=== PATIENT | male | born 1940 | race Caucasian/White ===

== ENCOUNTER 2020-04-07 07:23 | Emergency (ER) | payer MEDICARE, SELFPAY ==
--- NOTE | ~2020-04-07 | XR_ITS ---
EXAMINATION: XR foot LT min 3V DATE: 04/07/2020 08:04 INDICATION: Foreign body TECHNIQUE: Dorsoplantar, two oblique and lateral views of the left foot were obtained. COMPARISON: None. FINDINGS: Alignment is normal. No fracture. 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 1-2 mm radiopaque foreign body consistent with a small g lass fragment projecting over the plantar soft tissues between the base of the third and fourth toes. IMPRESSION: 1. 1-2 mm radiopaque foreign body in the plantar soft tissues between the base of the third and fourt h toes. No acute osseous abnormality. Reviewed, dictated and finalized at location A. IMPRESSION: 1. 1-2 mm radiopaque foreign body in the plantar soft tissues between the base of the third and fourth toes. No acute osseous abnormality.
[2020-04-07 07:38] VITALS: BP 133/71; PULSE 71; RESP 18; TEMP 36.6; O2SAT 99
--- NOTE | 2020-04-07 07:52 | ED.SKABFB ---
HPI - Skin/Abscess/Foreign Bdy General Chief complaint: Skin/Abscess/Foreign Body Stated complaint: stepped on glass/foot injury Time Seen by Provider: 04/07/20 07:27 Source: patient Mode of arrival: ambulatory Limitations: no limitations History of Present Illness HPI narrative: This patient is a 79 year old male who presents for evaluation of foreign body to his left foot. Patient states he stepped on a piece of glass early this morning . His attempted to removed the glass from bottom of his left foot prior to arrival but she states it is deep. Patient is having pain with walking on the foot. He is not a diabetic. He is unsure of his last tetanus shot. MD complaint: foreign body Related Data Home Medications Medication Instructions Recorded Confirmed aspirin 81 mg tablet,delayed 81 mg PO DAILY 11/10/19 04/07/20 release atorvastatin 80 mg tablet 80 mg PO DAILY 11/10/19 04/07/20 nitroglycerin 0.4 mg sublingual 0.4 mg SUBLINGUAL Q5M PRN 11/10/19 04/07/20 tablet lisinopril 20 mg PO BID 04/07/20 04/07/20 pantoprazole 40 mg PO DAILY 04/07/20 04/07/20 ticagrelor [Brilinta] 90 mg PO Q12H 04/07/20 04/07/20 Allergies Allergy/AdvReac Type Severity Reaction Status Date / Time No Known Allergies Allergy Unknown Verified 04/07/20 07:46 Review of Systems Review of Systems: All systems reviewed & are unremarkable except as noted in HPI and below PMFSH Past Medical History Medical History (Updated 04/07/20 @ 17:21 by Shalonda Perry MD) Hypertension Hypothyroid Myocardial infarction Surgical History Surgical History (Updated 04/07/20 @ 07:54 by Shalonda Perry MD) History of heart artery stent History of open reduction and internal fixation (ORIF) procedure Family History Family History (Updated 10/01/18 @ 08:57 by DOCTOR UNKNOWN) Mother Carcinoma of colon Family history of malignant neoplasm of trachea Social History Social History Smoking status: Never smoker Alcohol intake: current Gender identity (if verbalized by the patient): Male Exam Const: General: no acute distress and alert Orientation/consciousness: patient oriented x3 HENMT: Head: normocephalic and atraumatic Face and sinus: face symmetric Eyes: EOM: EOMs intact bilaterally Resp: Effort & Inspection: normal respiratory effort Neuro: General: patient oriented x3 and moves all extremities Extrem: General: no pedal edema Other: left plantar surface with puncture wound at base of 3-4 metatarasal Course Vital Signs Vital signs: Vital Signs Temperature 97.9 F 04/07/20 07:38 Pulse Rate 71 04/07/20 07:38 Respiratory Rate 18 04/07/20 07:38 Blood Pressure 133/71 04/07/20 07:38 Pulse Oximetry 99 04/07/20 07:38 Temperature 97.9 F 04/07/20 07:38 Pulse Rate 65 04/07/20 09:56 Respiratory Rate 16 04/07/20 09:56 Blood Pressure 157/76 H 04/07/20 09:56 Pulse Oximetry 100 04/07/20 09:56 Procedures Foreign Body Removal Foreign Body #1: Foreign Body Removal Date: 04/07/20 Foreign Body Removal Time: 09:41 Site: left and foot Description of foreign body: other (glass) Technique: removal with forceps Confirmed by:: direct visualization and radiograph Neurovascular: normal distal pulse and normal capillary fill Foreign Body Removal Narrative: local anesthetic with 1 ml 1% lidocaine after prepping area with betadine MDM - Skin/Abscess/Foreign Bdy Imaging Data Radiologist's impression: ITS Impressions Foot X-Ray 04/07/20 08:10 IMPRESSION: 1. 1-2 mm radiopaque foreign body in the plantar soft tissues between the base of the third and fourth toes. No acute osseous abnormality. Discharge Plan Discharge Clinical Impression: Foreign body of foot, superficial Patient Disposition: Home, Self-Care Condition: Stable Instructions: Antibiotic Form, Soft Tissue Foreign Body (ED), Puncture Wound (ED) A
[2020-04-07] MEDS: TETANUS,DIPHTHERIA,AC PERTUSSIS ADULT (0.5 ML) BOOSTRIX IM (08:07)
[2020-04-07 09:56] VITALS: BP 157/76; PULSE 65; RESP 16; O2SAT 100
== END 2020-04-07 09:52 | disposition home or self-care (01) ==
PROVIDERS: Emergency Provider General Practice; PCP Family Medicine
DX: S91.342A Puncture wound with foreign body, left foot, initial encounter (principal); I10 Essential (primary) hypertension; E03.9 Hypothyroidism, unspecified; I25.2 Old myocardial infarction; Z95.5 Presence of coronary angioplasty implant and graft; Z23 Encounter for immunization; W25.XXXA Contact with sharp glass, initial encounter; W45.8XXA Other foreign body or object entering through skin, initial encounter
CPT/HCPCS: 73630; 90471; 90715; 99283; A9270

== ENCOUNTER 2020-04-11 00:46 | Outpatient (CLI) | payer MEDICARE, SELFPAY ==
[2020-04-11 18:12] LABS: SARS-CoV-2 RNA PCR Negative
== END 2020-04-11 00:47 | disposition home or self-care (01) ==
LOC: ANHCOVIDDT 00:46
PROVIDERS: PCP Family Medicine; Visit Provider Internal Medicine Gastroenterology
DX: Z01.818 Encounter for other preprocedural examination (principal); Z11.59 Encounter for screening for other viral diseases; Z86.010 Personal history of colon polyps
CPT/HCPCS: 87635; C9803; U0003

== ENCOUNTER 2020-04-13 01:56 | Day surgery (SDC) | payer MEDICARE, SELFPAY ==
[2020-04-07 16:23] VITALS: BMI 23.7
[2020-04-13 06:15] VITALS: BP 129/63; PULSE 76; RESP 16; TEMP 36.3; O2SAT 99
[2020-04-13] MEDS: LACTATED RINGERS 1,000 ML 150 ML IV CONT (06:31)
--- NOTE | 2020-04-13 07:18 | WPDANESEPPF ---
Anes - Initial Pre Proc Eval Procedure: Operation Date: 04/13/20 07:30 Proposed Procedures p Screening Colonoscopy - Carson Martin DO Date/Time: 04/13/20 07:18 Surgeon: Carson Martin DO Pre Op Diagnosis: Hx of Colon Polyps Patient Data Age: 79 Gender: M Height: 5 ft 10 in Weight: 72.8 kg Last Vital Signs Temp 97.3 F L 04/13/20 06:15 Pulse 76 04/13/20 06:15 Resp 16 04/13/20 06:15 BP 129/63 04/13/20 06:15 Pulse Ox 99 04/13/20 06:15 Allergies Allergy/AdvReac Type Severity Reaction Status Date / Time No Known Allergies Allergy Unknown Verified 04/07/20 07:46 Home Medications Medication Instructions Recorded Confirmed Type aspirin 81 mg tablet,delayed 81 mg PO DAILY 11/10/19 04/07/20 History release atorvastatin 80 mg tablet 80 mg PO DAILY 11/10/19 04/07/20 History nitroglycerin 0.4 mg sublingual 0.4 mg SUBLINGUAL Q5M PRN 11/10/19 04/07/20 History tablet indapamide 2.5 mg tablet 2.5 mg PO QAM #90 tablet 11/12/19 04/07/20 Rx levothyroxine 75 mcg tablet 75 mcg PO DAILY #90 tablet 11/15/19 04/07/20 Rx bupropion HCl 75 mg tablet 75 mg PO BID #180 tablet 02/03/20 04/07/20 Rx lisinopril 20 mg PO BID 04/07/20 04/07/20 History pantoprazole 40 mg PO DAILY 04/07/20 04/07/20 History ticagrelor [Brilinta] 90 mg PO Q12H 04/07/20 04/07/20 History Patient hx anesthesia problems: none Family hx anesthesia problems: none PMFSH Past Medical History Medical History (Updated 04/13/20 @ 07:19 by Carson Martin DO) Adenomatous colon polyp Anxiety and depression CAD (coronary artery disease) Stent x1 & x1 Colonoscopy causing post-procedural bleeding GERD (gastroesophageal reflux disease) HLD (hyperlipidemia) Hypertension Hypothyroid Lung cancer Myocardial infarction Surgical History Surgical History (Updated 04/07/20 @ 07:54 by Shalonda Perry MD) History of heart artery stent History of open reduction and internal fixation (ORIF) procedure Family History Family History (Updated 10/01/18 @ 08:57 by DOCTOR UNKNOWN) Mother Carcinoma of colon Family history of malignant neoplasm of trachea Social History Social History Smoking status: Never smoker Alcohol intake: current Gender identity (if verbalized by the patient): Male Anes - Eval Final PreProcedure Day of Procedure 04/13/20 07:18 Patient weight: normal Heart: regular rate and rhythm Lungs: clear to auscultation Airway: Mallampati scale class II Neurological: alert and oriented Last oral intake: >/= 8 hours ASA classification: III Emergent: no Anesthetic plan: proceed Anesthesia type and monitoring: general GIVS and standard monitoring Informed Consent: The patient's anesthetic plan and its attendant risks and benefits were discussed with the patient/family/POA. Questions were solicited and answers provided to the satisfaction of the patient/family/POA.
--- NOTE | 2020-04-13 07:19 | PM.IMHP ---
H&P: HPI History of Present Illness Chief complaint: Hx of Colon Polyps Narrative: Reason for visit colonoscopy. This very pleasant gentleman is here for colonoscopy at the request of the primary. The patient was examined. Impression: Screening and surveillance colonoscopy. The patient has history adenomatous colon polyps. GERD well controlled on medication. For past medical history. Recommendation: Colonoscopy. History: This very pleasant gentleman is here for screening and surveillance colonoscopy. He has a history adenomatous colon polyps. His GI review systems negative. Physical examination: General: very pleasant patient in no acute distress. HEENT: Head was normocephalic sclerae is clear mouth without masses neck was supple. Heart: Rate rhythm regular without S3 or S4. Lungs: CTA. Abdomen: Soft with no guarding or rigidity. Bowel sounds were active. Neurologic: Cranial nerves 2 through 12 intact. No focal defects. No clonus. Musculoskeletal system: Revealed no joint tenderness or swelling no muscle atrophy. Extremities: Reveal no significant edema. Skin: Warm and dry with normal turgor. Mental status: intact. Patient is alert and oriented. Review of Systems Review of Systems: All systems reviewed & are unremarkable except as noted in HPI and below PMFSH Past Medical History Medical History Adenomatous colon polyp Anxiety and depression CAD (coronary artery disease) Stent x1 & x1 Colonoscopy causing post-procedural bleeding GERD (gastroesophageal reflux disease) HLD (hyperlipidemia) Hypertension Hypothyroid Lung cancer Myocardial infarction Surgical History Surgical History History of heart artery stent History of open reduction and internal fixation (ORIF) procedure Family History Family History Mother Carcinoma of colon Family history of malignant neoplasm of trachea Social History Social History Smoking packs per day: 1 Smoking cigarettes per day: 20.0 Years smoked: 40 Smoking pack-years: 40.00 Smoking status: Never smoker Alcohol intake: current Gender identity (if verbalized by the patient): Male Meds Home Medications and Allergies Home Medications Medication Instructions Recorded Confirmed Type aspirin 81 mg tablet,delayed 81 mg PO DAILY 11/10/19 04/07/20 History release atorvastatin 80 mg tablet 80 mg PO DAILY 11/10/19 04/07/20 History nitroglycerin 0.4 mg sublingual 0.4 mg SUBLINGUAL Q5M PRN 11/10/19 04/07/20 History tablet indapamide 2.5 mg tablet 2.5 mg PO QAM #90 tablet 11/12/19 04/07/20 Rx levothyroxine 75 mcg tablet 75 mcg PO DAILY #90 tablet 11/15/19 04/07/20 Rx bupropion HCl 75 mg tablet 75 mg PO BID #180 tablet 02/03/20 04/07/20 Rx lisinopril 20 mg PO BID 04/07/20 04/07/20 History pantoprazole 40 mg PO DAILY 04/07/20 04/07/20 History ticagrelor [Brilinta] 90 mg PO Q12H 04/07/20 04/07/20 History Allergies Allergy/AdvReac Type Severity Reaction Status Date / Time No Known Allergies Allergy Unknown Verified 04/07/20 07:46 Vital Signs Vital Signs - 24 hr 04/13/20 06:15 Temperature 36.3 C L Pulse Rate 76 Respiratory Rate 16 Blood Pressure 129/63 Pulse Oximetry 99
[2020-04-13 08:00] VITALS: BP 93/35; PULSE 62; RESP 14; O2SAT 97
[2020-04-13 08:10] VITALS: BP 110/42; PULSE 63; RESP 17; O2SAT 97
[2020-04-13 08:20] VITALS: BP 123/67; PULSE 64; RESP 17; O2SAT 97
== END 2020-04-13 08:46 | disposition home or self-care (01) ==
PROVIDERS: PCP Family Medicine; Visit Provider Internal Medicine Gastroenterology
PROC: 0DJD8ZZ Inspection of Lower Intestinal Tract, Via Natural or Artificial Opening Endoscopic (ICD-10-PCS; CPT 45378; principal; 2020-04-13 07:30)
DX: Z12.11 Encounter for screening for malignant neoplasm of colon (principal); D12.3 Benign neoplasm of transverse colon; D12.2 Benign neoplasm of ascending colon; K63.5 Polyp of colon; K57.30 Diverticulosis of large intestine without perforation or abscess without bleeding; I10 Essential (primary) hypertension; E78.5 Hyperlipidemia, unspecified; I25.2 Old myocardial infarction; E03.9 Hypothyroidism, unspecified; I25.10 Atherosclerotic heart disease of native coronary artery without angina pectoris; F41.8 Other specified anxiety disorders; Z85.118 Personal history of other malignant neoplasm of bronchus and lung; Z79.82 Long term (current) use of aspirin; Z95.5 Presence of coronary angioplasty implant and graft; Z79.01 Long term (current) use of anticoagulants
CPT/HCPCS: 45380; 45385; 87635; 88305; C9803; J2704; J7120; U0003

== ENCOUNTER 2020-06-22 09:19 | Outpatient (CLI) | payer MEDICARE, SELFPAY ==
[2020-06-22 10:01] LABS: Basophils Percent Auto 0.5 % (0.2-1.2); Eosinophils Absolute Auto 0.1 K/mm3 (0-0.3); Eosinophils Percent Auto 1.4 % (0-4.4); Hematocrit 36.9 % (42.0-52.0); Immature Granulocyte Absolute 0.07 K/mm3 (0.00-0.031); Immature Granulocyte Percent A 1.1 % (0-0.5); Lymphocytes Absolute Auto 0.72 K/mm3 (0.9-3.2); Mean Corpuscular HGB Conc 32.5 g/dl (32-36); Mean Corpuscular Hemoglobin 32.9 pg (26-34); Mean Corpuscular Volume 101.1 fl (80-100); Mean Platelet Volume 10.7 fl (7.4-10.4); Monocytes Absolute Auto 0.5 K/mm3 (0.1-0.6); Neutrophils Absolute Auto 5.2 K/mm3 (1.3-6.7); Platelet Count Result 178 k/mm3 (150-375); Red Blood Count 3.65 M/mm3 (4.6-6.20); Red Cell Distribution Width 13.4 % (11.5-14.5); Reticulocyte Hemoglobin Conten 38.7 pg (28.2-35.7); Reticulocyte Percent 2.28 % (0.7-4.3); Reticulocytes Absolute 0.08 B/L (32.2-175.7); White Blood Count 6.5 K/mm3 (4.5-10.0)
[2020-06-22 12:41] LABS: Iron 81 ug/dL (49-181)
[2020-06-22 12:45] LABS: Alanine Aminotransferase 25 U/L (4-50); Albumin Level 4.4 g/dL (3.5-5.1); Alkaline Phosphatase 77 U/L (38-126); Anion Gap 7 mmol/L (8-16); Aspartate Amino Transferase 30 U/L (17-59); Bilirubin,Total 0.4 mg/dL (0.2-1.3); Blood Urea Nitrogen 18 mg/dL (9-20); Calcium 9.7 mg/dL (8.4-10.2); Carbon Dioxide 28 mmol/L (22-30); Chloride 105 mmol/L (98-107); Estimated Glomerular Filt Rate > 60; Glucose 109 mg/dL (75-110); Lactate Dehydrogenase 417 U/L (313-618); Potassium 4.9 mmol/L (3.4-5.0); Sodium 140 mmol/L (137-145)
[2020-06-22 12:50] LABS: Percent Iron Saturation 29 % (20-50)
[2020-06-26 13:03] LABS: Methylmalonic Acid 171 nmol/L (87-318)
== END 2020-06-22 09:20 | disposition home or self-care (01) ==
PROVIDERS: PCP Family Medicine; Visit Provider Internal Medicine Hematology & Oncology
DX: D64.9 Anemia, unspecified (principal)
CPT/HCPCS: 36415; 80053; 82607; 82728; 82746; 83540; 83550; 83615; 83921; 84443; 85025; 85046

== ENCOUNTER 2020-06-27 07:27 | Outpatient (CLI) | payer MEDICARE, SELFPAY ==
--- NOTE | ~2020-06-27 | CT_ITS ---
EXAMINATION: CT abdomen pelvis w con INDICATION: Nausea and vomiting, history of lung cancer TECHNIQUE: Computed tomographic images of the abdomen and pelvis were obtained after the administrati on of 100 cc of Omnipaque 350 intravenous contrast. The dose-length product (DLP) was 430.69 mGy-cm. Automated exposure control and iterative reconstruction technique were employed. COMPARISON: None available FINDINGS: Minimal dependent atelectasis is present in the lung bases. The heart size is normal. Surgi cruz changes are noted in the right middle lobe. Fluid attenuation lesions of the liver, measuring up to 1.3 cm in the left hepatic lobe, are consistent with cysts. The spleen, pancreas, gallbladder, and adrenal glands are normal. The kidneys are unremarkable. There is calcified atherosclerosis of the a luisa and many of the other arteries. No pathologically enlarged abdominal or pelvic lymph nodes are i dentified. There is no free intraperitoneal gas or evidence of bowel obstruction. A moderate volume o f colonic stool is present. Colonic diverticulosis is present without evidence of diverticulitis. The appendix is normal. Mild lumbar spondylosis is noted. IMPRESSION: 1. No CT correlate for the patient's symptoms. 2. Moderate volume of colonic stool. Reviewed, dictated and finalized at location A.
== END 2020-06-27 07:28 | disposition home or self-care (01) ==
PROVIDERS: PCP Family Medicine; Visit Provider Internal Medicine Hematology & Oncology
DX: R11.2 Nausea with vomiting, unspecified (principal)
CPT/HCPCS: 74177; Q9967

== ENCOUNTER 2021-03-29 13:30 | Outpatient (RCR) | payer MEDICARE, SELFPAY ==
[2021-03-15 12:22] VITALS: PULSE 56
--- NOTE | 2021-03-29 15:01 | PCCPR ---
Ayaan discharged early per his request. Ayaan felt like he was doing the same thing at the gym that he is doing here and did not want to pay the copay.
== END 2021-03-30 14:07 | disposition home or self-care (01) ==
LOC: ANHCPREHAB 13:30
PROVIDERS: PCP Family Medicine; Visit Provider Internal Medicine Cardiovascular Disease
DX: Z95.5 Presence of coronary angioplasty implant and graft (principal)
CPT/HCPCS: 93798

== ENCOUNTER 2021-06-18 10:10 | Emergency (ER) | payer MEDICARE, SELFPAY ==
--- NOTE | ~2021-06-18 | XR_ITS ---
EXAMINATION: XR chest 2V DATE: 06/18/2021 11:29 INDICATION: Nausea and vomiting. Weakness. TECHNIQUE: Frontal and lateral views of the chest were obtained. COMPARISON: Chest 2 views 07/26/2019, CT abdomen and pelvis 06/27/2020 FINDINGS: There is no pneumonia, pleural effusion, or pneumothorax. There are staple lines in right l ower lung zone. There are surgical clips overlying right hilum. The heart size is normal. There are p rominent paracardial fat pads. There is chronic anterior wedging of multiple thoracic vertebral josephine s. IMPRESSION: 1. No acute cardiopulmonary disease. Reviewed, dictated and finalized at location A.
[2021-06-18 10:25] VITALS: BP 101/67; PULSE 81; RESP 18; TEMP 36.2; O2SAT 100
--- NOTE | 2021-06-18 11:13 | ECG_ITS ---
Measurements Intervals [place] Rate: 72 P: 2 [place]: 161 QRS: 42 QRSD: 89 T: 33 QT: 367 QTc: 402 Interpretive Statements SINUS RHYTHM NORMAL ECG Electronically Signed On 06-18-2021 14:55:13 CDT by Eleazar Anguiano D.O.
[2021-06-18 11:29] LABS: Basophils Absolute Auto 0.1 K/mm3 (0.0-0.1); Basophils Percent Auto 0.7 % (0.2-1.2); Eosinophils Absolute Auto 0.2 K/mm3 (0-0.3); Eosinophils Percent Auto 1.8 % (0-4.4); Hematocrit 43.3 % (42.0-52.0); Hemoglobin 14.2 g/dL (14.0-18.0); Immature Granulocyte Absolute 0.16 K/mm3 (0.00-0.031); Immature Granulocyte Percent A 1.8 % (0-0.5); Lymphocytes Absolute Auto 0.73 K/mm3 (0.9-3.2); Mean Corpuscular HGB Conc 32.8 g/dl (32-36); Mean Corpuscular Hemoglobin 32.6 pg (26-34); Mean Corpuscular Volume 99.5 fl (80-100); Mean Platelet Volume 10.2 fl (7.4-10.4); Monocytes Absolute Auto 0.7 K/mm3 (0.1-0.6); Monocytes Percent Auto 7.8 % (2.6-8.5); Neutrophils Absolute Auto 7.3 K/mm3 (1.3-6.7); Neutrophils Percent Auto 79.9 % (45.5-73.1); Platelet Count Result 235 k/mm3 (150-375); Red Blood Count 4.35 M/mm3 (4.6-6.20); Red Cell Distribution Width 12.7 % (11.5-14.5); White Blood Count 9.1 K/mm3 (4.5-10.0)
[2021-06-18 11:38] LABS: Anion Gap 12 mmol/L (8-16); Blood Urea Nitrogen 48 mg/dL (9-20); Calcium 9.9 mg/dL (8.4-10.2); Carbon Dioxide 23 mmol/L (22-30); Chloride 98 mmol/L (98-107); Estimated CRCL calculation 21 ml/min; Estimated Glomerular Filt Rate 23; Glucose 120 mg/dL (65-110); Potassium 5.1 mmol/L (3.4-5.0); Sodium 133 mmol/L (137-145)
[2021-06-18 13:52] VITALS: BP 147/78; PULSE 78; RESP 18; O2SAT 100
--- NOTE | 2021-06-18 14:05 | ED.GENADULT ---
HPI - General Adult General Chief complaint: Unspecified Stated complaint: vomited, weak Time Seen by Provider: 06/18/21 13:51 History of Present Illness HPI narrative: 80 yo male presents to the ED c/o near syncope. He has reportedly not been feeling well for the past 2 days. He had profuse watery diarrhea yesterday and this morning. This seems to have resolved. Today he had nausea and one episode of vomiting. He then became very weak and light headed. His reports that he has had low energy and MAGALLANES for a few weeks. Related Data Home Medications Medication Instructions Recorded Confirmed aspirin 81 mg tablet,delayed 81 mg PO DAILY 11/10/19 03/19/21 release nitroglycerin 0.4 mg sublingual 0.4 mg SUBLINGUAL Q5M PRN 11/10/19 03/19/21 tablet acyclovir 800 mg tablet 800 mg PO DAILY 02/05/21 03/19/21 lisinopril 40 mg tablet 40 mg PO BID tablet 02/05/21 03/19/21 atorvastatin 40 mg PO HS 03/15/21 03/19/21 metoprolol succinate 12.5 mg PO DAILY 03/15/21 03/19/21 prasugrel 10 mg PO DAILY 03/15/21 03/19/21 magnesium oxide 500 mg tablet 500 mg PO DAILY 03/19/21 03/19/21 mecobalamin (vitamin B12) 5,000 5,000 mcg PO DAILY 03/19/21 03/19/21 mcg lozenge pantoprazole 40 mg tablet,delayed 40 mg PO DAILY tablet 03/19/21 03/19/21 release Allergies Allergy/AdvReac Type Severity Reaction Status Date / Time No Known Allergies Allergy Unknown Verified 04/18/21 15:00 Review of Systems Review of Systems: All systems reviewed & are unremarkable except as noted in HPI and below Constitutional: Constitutional: Denies chills and Denies fever(s) Eyes: Eyes: Reports no additional eye complaints ENT: Reports system reviewed and no additional complaints, except as documented Cardiovascular: Cardiovascular: Denies chest pain Respiratory: Respiratory: Denies dyspnea Gastrointestinal: Gastrointestinal: Reports diarrhea, Reports nausea and Reports vomiting Genitourinary: Genitourinary: Reports no additional male genitourinary complaints Musculoskeletal: Musculoskeletal: Denies back pain Neurologic: Reports dizziness, Denies syncope and Reports headache(s) [facility] Past Medical History Medical History Adenomatous colon polyp Anxiety and depression CAD (coronary artery disease) Stent x1 & x1 CKD (chronic kidney disease) stage 3, GFR 30-59 ml/min Degenerative disc disease, lumbar Environmental allergies GERD (gastroesophageal reflux disease) Herpes simplex ophthalmicus History of lung cancer HLD (hyperlipidemia) Hypertension Hypothyroid Lung cancer 2015 Myocardial infarction 06/2019 Umbilical hernia Vitamin B12 deficiency Surgical History Surgical History 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 History of hand surgery 06/2019 - Right hand chondroma excision History of heart artery stent (~07/26/19) 1999, 06/2019 History of lobectomy of lung 2015 - RML History of lumbar laminectomy for spinal cord decompression 2011 History of right cataract surgery 2018 History of umbilical hernia repair 2007 Family History Family History Mother Family history of malignant neoplasm of trachea Carcinoma of colon Hypertension Hyperlipidemia Father Cancer Social History Social History Smoking packs per day: 1 Smoking cigarettes per day: 20.0 Years smoked: 30 Smoking pack-years: 30.00 Smoking status: Never smoker Tobacco type: cigarettes Alcohol intake: current Substance use: never Substance use type: does not use Additional living arrangements comments: Gender identity (if verbalized by the patient): Male Spiritual care concerns: No Exam Const: General: healthy appearing, no acute distress and alert Orientation/consciousness: patien
[2021-06-18] MEDS: SODIUM CHLORIDE 0.9% IV 1,000 ML 999 ML IV CONT ×2 (14:13→15:56)
[2021-06-18 15:10] LABS: Alanine Aminotransferase 24 U/L (4-50); Albumin Level 4.8 g/dL (3.5-5.1); Alkaline Phosphatase 102 U/L (38-126); Aspartate Amino Transferase 29 U/L (17-59); Bilirubin,Total 0.9 mg/dL (0.2-1.3); Lipase 434 U/L (23-300)
[2021-06-18 15:39] LABS: NT Pro B Type Natriuretic Pept 46 pg/mL (5-100); Troponin I < 0.012 ng/mL (0.000-0.034)
[2021-06-18 16:11] LABS: EDCOVIDSCREEN Negative (Negative)
== END 2021-06-18 20:17 | disposition home or self-care (01) ==
PROVIDERS: Family Medicine; Emergency Provider Emergency Medicine; PCP Family Medicine
DX: N17.9 Acute kidney failure, unspecified (principal); E86.0 Dehydration; Z20.822 Contact with and (suspected) exposure to COVID-19; I25.10 Atherosclerotic heart disease of native coronary artery without angina pectoris; Z95.5 Presence of coronary angioplasty implant and graft; I12.9 Hypertensive chronic kidney disease with stage 1 through stage 4 chronic kidney disease, or unspecified chronic kidney disease; N18.30 Chronic kidney disease, stage 3 unspecified; E78.5 Hyperlipidemia, unspecified; I25.2 Old myocardial infarction; E03.9 Hypothyroidism, unspecified; K21.9 Gastro-esophageal reflux disease without esophagitis; E53.8 Deficiency of other specified B group vitamins; Z85.118 Personal history of other malignant neoplasm of bronchus and lung; Z86.010 Personal history of colon polyps; Z94.7 Corneal transplant status; Z90.2 Acquired absence of lung [part of]; Z98.41 Cataract extraction status, right eye; F17.210 Nicotine dependence, cigarettes, uncomplicated
CPT/HCPCS: 36415; 71046; 80048; 80076; 83690; 83880; 84484; 85025; 87426; 93005; 96360; 96361; 99284; C9803; J7030

== ENCOUNTER 2022-03-18 13:43 | Emergency (ER) | payer MEDICARE, SELFPAY ==
[2022-03-18] VITALS (14 sets, daily range): BP systolic 127–190; BP diastolic 86–96; PULSE 66–78; RESP 10–17; TEMP 35.9–36.8; O2SAT 96–100
--- NOTE | ~2022-03-18 | XR_ITS ---
XR chest 1V portable 03/18/2022 14:29 Indication: Hypertension. Lung cancer. Previous MS. Procedure: AP portable chest Comparison: 06/18/2021 Findings: Heart size normal. There is surgical clips overlying mediastinum. Subtle left basilar infil trates may represent atelectasis or developing pneumonia. No pleural effusion or pneumothorax. No acu te osseous abnormality. There are surgical changes in the right lower thorax. Impression: 1: Subtle left basilar infiltrates may represent atelectasis or developing pneumonia. Reviewed, dictated and finalized at location A. Impression: 1: Subtle left basilar infiltrates may represent atelectasis or developing pneu monia.
--- NOTE | 2022-03-18 13:57 | ED.GENADULT ---
HPI - General Adult General Chief complaint: Recheck/Abnormal Lab/Rx Stated complaint: Elevated Blood Pressure Time Seen by Provider: 03/18/22 13:56 Source: patient and family Mode of arrival: ambulatory Limitations: no limitations History of Present Illness HPI narrative: 81 years old white male who presented to the ED with elevated blood pressure. History of hypertension, on lisinopril and Lopressor. Patient was not able to sleep last night because too much stress lately. Got up this morning not feeling well because of lack of sleep, decided to take his blood pressure and was 190/95, took his regular blood pressure medication, half an hour later checked his blood pressure again and again half an hour later, last number was 220/120. Patient took extra dose of lisinopril and Lopressor, came to the emergency room with blood pressure 136/89. Patient is asymptomatic, he denies any chest pain, shortness of breath, fever, chills, back pain, headache. After talking to the patient and explaining what is going on. Blood pressure went up 190/86. Patient's at the bedside which is very anxious and restless and reflecting her anxiety on him. Related Data Home Medications Medication Instructions Recorded Confirmed aspirin 81 mg tablet,delayed 81 mg PO DAILY 11/10/19 09/19/21 release nitroglycerin 0.4 mg sublingual 0.4 mg SUBLINGUAL Q5M PRN 11/10/19 09/19/21 tablet acyclovir 800 mg tablet 800 mg PO DAILY 02/05/21 09/19/21 lisinopril 40 mg tablet 40 mg PO BID tablet 02/05/21 09/19/21 atorvastatin 40 mg PO HS 03/15/21 09/19/21 metoprolol succinate 12.5 mg PO DAILY 03/15/21 09/19/21 prasugrel 10 mg PO DAILY 03/15/21 09/19/21 magnesium oxide 500 mg tablet 500 mg PO DAILY 03/19/21 09/19/21 mecobalamin (vitamin B12) 5,000 5,000 mcg PO DAILY 03/19/21 09/19/21 mcg lozenge Allergies Allergy/AdvReac Type Severity Reaction Status Date / Time No Known Allergies Allergy Unknown Verified 03/18/22 13:51 Review of Systems Review of Systems: All systems reviewed & are unremarkable except as noted in HPI and below PMFSH Past Medical History Medical History Adenomatous colon polyp Anxiety and depression CAD (coronary artery disease) Stent x1 & x1 CKD (chronic kidney disease) stage 3, GFR 30-59 ml/min Degenerative disc disease, lumbar Environmental allergies GERD (gastroesophageal reflux disease) Herpes simplex ophthalmicus History of lung cancer HLD (hyperlipidemia) Hypertension Hypothyroid Lung cancer 2015 Myocardial infarction 06/2019 Umbilical hernia Vitamin B12 deficiency Surgical History Surgical History 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 History of hand surgery 06/2019 - Right hand chondroma excision History of heart artery stent (~07/26/19) 1999, 06/2019 History of lobectomy of lung 2014 - RML History of lumbar laminectomy for spinal cord decompression 2011 History of right cataract surgery 2018 History of umbilical hernia repair 2007 Family History Family History Mother Family history of malignant neoplasm of trachea Carcinoma of colon Hypertension Hyperlipidemia Father Cancer Social History Social History Smoking packs per day: 1 Smoking cigarettes per day: 20.0 Years smoked: 30 Smoking pack-years: 30.00 Smoking status: Former smoker Tobacco type: cigarettes Alcohol intake: current Substance use: never Substance use type: does not use Additional living arrangements comments: Gender identity (if verbalized by the patient): Male Sexual Orientation (if Verbalized by the Patient): Straight or Heterosexual Spiritual care concerns: No Exam Narrative: General appearance: Well-developed, well-nourished, looks anxious. Skin: Norm
--- NOTE | 2022-03-18 14:13 | ECG_ITS ---
Measurements Intervals [place] Rate: 70 P: -5 [place]: 174 QRS: 21 QRSD: 89 T: 8 QT: 386 QTc: 418 Interpretive Statements SINUS RHYTHM ATRIAL PREMATURE COMPLEX CONSIDER INFERIOR INFARCT, AGE INDETERMINATE ABNORMAL ECG Electronically Signed On 03-18-2022 14:33:14 CDT by Eleazar Anguiano D.O.
[2022-03-18] MEDS: LORazepam (*CRX) 0.5 MG TABLET 1 MG PO (14:19)
[2022-03-18 15:13] LABS: Basophils Percent Auto 0.6 % (0.2-1.2); Eosinophils Percent Auto 0.8 % (0-4.4); Hematocrit 36.5 % (42.0-52.0); Hemoglobin 11.9 g/dL (14.0-18.0); Immature Granulocyte Absolute 0.03 K/mm3 (0.00-0.031); Immature Granulocyte Percent A 0.6 % (0-0.5); Lymphocytes Absolute Auto 0.74 K/mm3 (0.9-3.2); Lymphocytes Percent Auto 14.8 % (18.3-44.2); Mean Corpuscular HGB Conc 32.6 g/dl (32-36); Mean Corpuscular Volume 101.1 fl (80-100); Mean Platelet Volume 10.4 fl (7.4-10.4); Monocytes Absolute Auto 0.5 K/mm3 (0.1-0.6); Monocytes Percent Auto 9.2 % (2.6-8.5); Neutrophils Absolute Auto 3.7 K/mm3 (1.3-6.7); Platelet Count Result 205 k/mm3 (150-375); Red Blood Count 3.61 M/mm3 (4.6-6.20); Red Cell Distribution Width 13.5 % (11.5-14.5)
[2022-03-18 15:23] LABS: Alanine Aminotransferase 24 U/L (6-50); Albumin Level 4.4 g/dL (3.5-5.1); Alkaline Phosphatase 88 U/L (38-126); Anion Gap 9 mmol/L (8-16); Aspartate Amino Transferase 31 U/L (17-59); Bilirubin,Total 0.7 mg/dL (0.2-1.3); Blood Urea Nitrogen 25 mg/dL (9-20); Calcium 9.4 mg/dL (8.4-10.2); Carbon Dioxide 21 mmol/L (22-30); Chloride 107 mmol/L (98-107); Estimated CRCL calculation 44 ml/min; Estimated Glomerular Filt Rate 58; Glucose 106 mg/dL (65-110); Potassium 4.6 mmol/L (3.4-5.0); Sodium 137 mmol/L (137-145)
[2022-03-18 15:35] LABS: Troponin I < 0.012 ng/mL (0.000-0.034)
== END 2022-03-18 15:39 | disposition home or self-care (01) ==
PROVIDERS: Emergency Provider Emergency Medicine; PCP Family Medicine
DX: F41.9 Anxiety disorder, unspecified (principal); F32.A Depression, unspecified; I25.10 Atherosclerotic heart disease of native coronary artery without angina pectoris; I12.9 Hypertensive chronic kidney disease with stage 1 through stage 4 chronic kidney disease, or unspecified chronic kidney disease; N18.30 Chronic kidney disease, stage 3 unspecified; M51.36 Other intervertebral disc degeneration, lumbar region; E78.5 Hyperlipidemia, unspecified; E03.9 Hypothyroidism, unspecified; I25.2 Old myocardial infarction; E55.9 Vitamin D deficiency, unspecified; Z95.5 Presence of coronary angioplasty implant and graft; Z94.7 Corneal transplant status; Z90.2 Acquired absence of lung [part of]; Z98.41 Cataract extraction status, right eye; Z87.891 Personal history of nicotine dependence; R91.8 Other nonspecific abnormal finding of lung field; I49.1 Atrial premature depolarization; R94.31 Abnormal electrocardiogram [ECG] [EKG]
CPT/HCPCS: 36415; 71045; 80053; 84484; 85025; 93005; 99284; A9270

== ENCOUNTER 2022-04-18 12:18 | Outpatient (CLI) | payer MEDICARE, SELFPAY ==
--- NOTE | ~2022-04-18 | CT_ITS ---
EXAMINATION: CT abdomen pelvis wo con DATE: 04/18/2022 12:42 INDICATION: Unintentional weight loss, history of lung cancer TECHNIQUE: Computed tomography (CT) of the abdomen and pelvis was performed without intravenous contr ast. The dose-length product (DLP) was 379.65 mGy-cm. Automated exposure control and iterative recons truction technique were employed. COMPARISON: 06/27/2020 FINDINGS: Minimal dependent atelectasis is present in the lung bases. The heart size is normal. There are changes of partial pneumonectomy on the right. Cysts of the liver measure up to 7 mm in the left hepatic lobe. The spleen, pancreas, gallbladder, and adrenal glands are normal. The kidneys are unre markable. There is calcified atherosclerosis of the aorta and many of the other arteries. No patholog ically enlarged abdominal or pelvic lymph nodes are identified. The appendix is normal. There is mode rate lumbar spondylosis. There is no free intraperitoneal gas or evidence of bowel obstruction. IMPRESSION: 1. No CT correlate for the patient's symptoms. Reviewed, dictated and finalized at location F.
== END 2022-04-18 12:19 | disposition home or self-care (01) ==
PROVIDERS: PCP Nurse Practitioner; Visit Provider Nurse Practitioner
DX: R63.4 Abnormal weight loss (principal); R11.0 Nausea; Z85.118 Personal history of other malignant neoplasm of bronchus and lung
CPT/HCPCS: 74176

== ENCOUNTER 2022-04-25 01:41 | Day surgery (SDC) | payer MEDICARE, SELFPAY ==
[2022-04-18 13:23] VITALS: BMI 23.7
--- NOTE | 2022-04-22 16:36 | PC.NURSE ---
PT CALLED TO DISCUSS STOPPING EFFIENT, PT STATES HE RAN OUT ABOUT 5 DAYS AGO, STATES HE WAS WANTING TO GET OFF IT ANYWAY. I EXPLAINED TO PATIENT THAT IT IS NOT SOMETHING HE SHOULD STOP OR RUN OUT OF WITHOUT DISCUSSING WITH DR. ASHBY, I EXPLAINED TO PT THAT DR. ASHBY GAVE OKAY TO HOLD ONLY FOR 5 DAYS. ENCOURAGED PT TO CALL DR. ASHBY AND DISCUSS, HE STATES HE WILL CALL. I CALLED DR. DEMPSEY OFFICE AND THEY ARE CLOSED FOR TODAY, I WILL CALL 04/23/2022 TO LET THE RN KNOW.
[2022-04-25 11:58] VITALS: BP 132/69; PULSE 77; RESP 18; TEMP 36.2; O2SAT 99
--- NOTE | 2022-04-25 12:07 | WPDHPUPDATE1 ---
History and Physical Update Update Date/Time: 04/25/22 12:07 History and Physical has been reviewed, including an updated exam of the patient. There are NO changes in the patient's condition. Risks, benefits, and alternatives have been discussed and questions answered. Patient agrees to proceed with procedure.
--- NOTE | 2022-04-25 12:13 | WPDANESEPPF ---
Anes - Initial Pre Proc Eval Procedure: Operation Date: 04/25/22 13:00 Proposed Procedures p Esophagogastroduodenoscopy - Carson Ewing MD Date/Time: 04/25/22 12:13 Surgeon: Carson Ewing MD Pre Op Diagnosis: weight loss, nausea Patient Data Age: 81 Gender: M Height: 1.78 m Weight: 74.5 kg Last Vital Signs Temp 36.2 C L 04/25/22 11:58 Pulse 77 04/25/22 11:58 Resp 18 04/25/22 11:58 BP 132/69 04/25/22 11:58 Pulse Ox 99 04/25/22 11:58 O2 Del Method Room Air 04/25/22 11:58 Allergies Allergy/AdvReac Type Severity Reaction Status Date / Time No Known Allergies Allergy Unknown Verified 04/25/22 11:57 Home Medications Medication Instructions Recorded Confirmed Type aspirin 81 mg tablet,delayed 81 mg PO DAILY 11/10/19 04/25/22 History release (Aspir-) nitroglycerin 0.4 mg sublingual 0.4 mg sublingual Q5M PRN Chest 11/10/19 04/25/22 History tablet Pain acyclovir 800 mg tablet 800 mg PO DAILY 02/05/21 04/25/22 History atorvastatin 40 mg tablet 40 mg PO HS 03/15/21 04/25/22 History metoprolol succinate 25 mg 12.5 mg PO DAILY 03/15/21 04/25/22 History tablet,extended release 24 hr prasugrel 10 mg tablet 10 mg PO DAILY 03/15/21 04/25/22 History magnesium oxide 500 mg tablet 500 mg PO DAILY 03/19/21 04/25/22 History indapamide 2.5 mg tablet 2.5 mg PO QAM #90 tabs 10/31/21 04/25/22 Rx bupropion HCl 75 mg tablet 75 mg PO BID #180 tabs 01/28/22 04/25/22 Rx pantoprazole 40 mg tablet,delayed 40 mg PO DAILY #90 tabs 03/26/22 04/25/22 Rx release mecobalamin (vitamin B12) 5,000 1,000 mcg PO DAILY 04/03/22 04/25/22 History mcg lozenge lisinopril 20 mg tablet 1 tablet PO BID 04/18/22 04/25/22 History levothyroxine 88 mcg tablet 88 mcg PO QAM #90 tabs 04/19/22 04/25/22 Rx Patient hx anesthesia problems: none Family hx anesthesia problems: none Results Review: All pre-operative results and documents have been reviewed as part of the pre-operative evaluation. [facility] Past Medical History Medical History Abnormal weight loss Adenomatous colon polyp Anxiety and depression Atrial fibrillation CAD (coronary artery disease) Stent x1 & x1 CKD (chronic kidney disease) stage 3, GFR 30-59 ml/min Degenerative disc disease, lumbar Environmental allergies Epigastric pain Family hx of colon cancer GERD (gastroesophageal reflux disease) Herpes simplex ophthalmicus History of lung cancer HLD (hyperlipidemia) Hypertension Hypothyroid Lung cancer 2015 Myocardial infarction 06/2019 Nausea Umbilical hernia Vitamin B12 deficiency Surgical History Surgical History 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 History of hand surgery 06/2019 - Right hand chondroma excision History of heart artery stent (~07/26/19) 1999, 06/2019 History of lobectomy of lung 2015 - RML History of lumbar laminectomy for spinal cord decompression 2012 History of right cataract surgery 2018 History of umbilical hernia repair 2007 Family History Family History Mother Family history of malignant neoplasm of trachea Carcinoma of colon Hypertension Hyperlipidemia Father Cancer Social History Social History Smoking packs per day: 1 Smoking cigarettes per day: 20.0 Years smoked: 30 Smoking pack-years: 30.00 Smoking status: Former smoker Tobacco type: cigarettes Alcohol intake: current Drinks per week: 14 Alcohol use details: DRINKS Substance use: never Substance use type: does not use Living arrangements: with family Additional living arrangements comments: Gender identity (if verbalized by the patient): Male Sexual Orientation (if Verbalized by the Patient): Straight or Heterosexual Spiritual care concerns: No
[2022-04-25] MEDS: LACTATED RINGERS 1,000 ML 150 ML IV CONT (12:16)
[2022-04-25 12:44] VITALS: BP 101/72; PULSE 67; RESP 16; O2SAT 100
[2022-04-25 12:54] VITALS: BP 141/72; PULSE 69; RESP 15; O2SAT 100
== END 2022-04-25 13:14 | disposition home or self-care (01) ==
PROVIDERS: PCP Nurse Practitioner; Visit Provider Internal Medicine Gastroenterology
PROC: 0DJ08ZZ Inspection of Upper Intestinal Tract, Via Natural or Artificial Opening Endoscopic (ICD-10-PCS; CPT 43235; principal; 2022-04-25 13:00)
DX: R11.0 Nausea (principal); K31.84 Gastroparesis; I25.10 Atherosclerotic heart disease of native coronary artery without angina pectoris; I25.2 Old myocardial infarction; I12.9 Hypertensive chronic kidney disease with stage 1 through stage 4 chronic kidney disease, or unspecified chronic kidney disease; F41.8 Other specified anxiety disorders; N18.30 Chronic kidney disease, stage 3 unspecified; R10.13 Epigastric pain; Z80.0 Family history of malignant neoplasm of digestive organs; K21.9 Gastro-esophageal reflux disease without esophagitis; E78.5 Hyperlipidemia, unspecified; E03.9 Hypothyroidism, unspecified; E53.8 Deficiency of other specified B group vitamins; K42.9 Umbilical hernia without obstruction or gangrene; Z87.891 Personal history of nicotine dependence; Z79.82 Long term (current) use of aspirin; R63.4 Abnormal weight loss; Z85.118 Personal history of other malignant neoplasm of bronchus and lung
CPT/HCPCS: 43235; J7120

== ENCOUNTER 2022-05-14 08:02 | Outpatient (CLI) | payer MEDICARE, SELFPAY ==
--- NOTE | ~2022-05-14 | NM_ITS ---
EXAM: NM gastric emptying study DATE: 05/14/2022 12:49 INDICATION: Nausea. TECHNIQUE: A gastric emptying study was performed using the methodology of Jasper CASTANON, et al. J Nucl Med 2007; 48:568-572. The patient was given a meal consisting of 2 scrambled eggs labeled with 0.935 mCi Tc-99m sulfur colloid, 2 slices of toast, two packages of jam, and approximately 120 mL of water . Simultaneous anterior and posterior 1-min images of the abdomen were obtained with the patient supi ne at multiple time points over a total period of 4 hours. The geometric mean of anterior and posteri or views was determined, and the percentage retention was calculated for each time point. COMPARISON: Abdomen and pelvis 04/18/2022 FINDINGS: Gastric retention of the radiotracer-labeled meal was 84%, 62%, and 15% at the 1-hour, 2-h our, and 4-hour time points, respectively. With this technique, apparent rapid gastric emptying is norris ggested by <30% gastric retention at 1 hour. Delayed gastric emptying is defined by gastric retention of >90% at 1 hour, >60% retention at 2 hours, or >10% retention at 4 hours. IMPRESSION: 1. Delayed gastric emptying. Reviewed, dictated and finalized at location A.
== END 2022-05-14 08:03 | disposition home or self-care (01) ==
PROVIDERS: PCP Nurse Practitioner; Visit Provider Internal Medicine Gastroenterology
DX: K31.89 Other diseases of stomach and duodenum (principal); R11.0 Nausea; K30 Functional dyspepsia
CPT/HCPCS: 78264; A9541

== ENCOUNTER → 2022-10-15 08:47 | Outpatient (CLI) | payer MEDICARE, SELFPAY ==
--- NOTE | ~2022-10-15 | US_ITS ---
US renal BI 10/15/2022 09:05 Procedure: Realtime transabdominal ultrasound of the kidneys and bladder. Indication: Hypertension Comparison: Ultrasound dated 02/16/2019 Findings: Renal echotexture is normal bilaterally without hydronephrosis, contour deforming mass or r enal calculus. The right kidney measures 9.5 cm and left kidney measures 10 cm. Bladder within gautam l limits. Impression: 1: Unremarkable renal ultrasound. No stones, masses or hydronephrosis. Reviewed, dictated and finalized at location A. [employer] Impression: 1: Unremarkable renal ultrasound. No stones, masses or hydronephrosis.
== END ==
PROVIDERS: PCP Internal Medicine Nephrology; Visit Provider Internal Medicine Nephrology
DX: I12.9 Hypertensive chronic kidney disease with stage 1 through stage 4 chronic kidney disease, or unspecified chronic kidney disease (principal); N18.32 Chronic kidney disease, stage 3b; Z20.5 Contact with and (suspected) exposure to viral hepatitis
CPT/HCPCS: 76775

== ENCOUNTER → 2023-04-02 13:01 | Outpatient (CLI) | payer MEDICARE, SELFPAY ==
--- NOTE | ~2023-04-02 | XR_ITS ---
XR lumbar spine 2-3V DATE: 04/02/2023 13:12 INDICATION: Right sciatica. No injury. TECHNIQUE: AP, lateral, coned lateral lumbosacral views COMPARISON: 07/2011 MRI lumbar spine 07/10/2011 lumbar spine FINDINGS: There is diffuse osteopenia. Mild thoracolumbar levoscoliosis There is degenerative change at the apophyseal joints particularly in the lower lumbar and lumbosacra l area with associated minimal grade 1 anterolisthesis at L4-5. No fracture or bone destruction is evident. The included lower thoracic and lumbar pedicles are intac t. There is mild to moderate degenerative disc disease throughout the lumbosacral area. The sacroiliac joints are intact. There is extensive calcification of the abdominal aorta and common and external iliac arteries, without evidence of aneurysm. IMPRESSION: Osteopenia Mild thoracolumbar levoscoliosis Mild to moderate degenerative disc disease throughout the spine Grade 1 anterolisthesis at L4-5 due to degenerative change at the apophyseal joints Reviewed, dictated and finalized at location [] IMPRESSION: Osteopenia Mild thoracolumbar levoscoliosis Mild to moderate degenerative disc disease throughout the spine Grade 1 anterolisthesis at L4-5 due to degenerative change at the apophyseal tray ints
== END ==
PROVIDERS: PCP Family Medicine; Visit Provider Family Medicine
DX: M54.41 Lumbago with sciatica, right side (principal); M85.88 Other specified disorders of bone density and structure, other site; M51.36 Other intervertebral disc degeneration, lumbar region
CPT/HCPCS: 72100

== ENCOUNTER 2023-04-14 09:58 | Outpatient (CLI) | payer MEDICARE, SELFPAY ==
[2023-04-14 15:46] LABS: Creatinine Urine 77.8 mg/dL
[2023-04-14 16:13] LABS: Albumin Level 4.4 g/dL (3.5-5.1); Anion Gap 4 mmol/L (8-16); Blood Urea Nitrogen 51 mg/dL (9-20); Carbon Dioxide 32 mmol/L (22-30); Chloride 101 mmol/L (98-107); Estimated Glomerular Filt Rate 30; Glucose 108 mg/dL (65-110); Phosphorus 4.2 mg/dL (2.5-4.5); Potassium 5.7 mmol/L (3.4-5.0); Sodium 137 mmol/L (137-145)
[2023-04-14 16:28] LABS: Hepatitis B Surface Anti Res Positive
[2023-04-14 16:45] LABS: Total Protein Urine Random < 5 mg/dL
[2023-04-14 16:46] LABS: Ur Ttl Prot Creatinine Ratio < 0.06 mg/mg (0-0.20)
== END 2023-04-14 09:59 | disposition home or self-care (01) ==
LOC: ANHLAB 10:00
PROVIDERS: PCP Family Medicine; Visit Provider Internal Medicine Nephrology
DX: I12.9 Hypertensive chronic kidney disease with stage 1 through stage 4 chronic kidney disease, or unspecified chronic kidney disease (principal); N18.32 Chronic kidney disease, stage 3b
CPT/HCPCS: 36415; 80069; 82088; 82570; 84156; 84244; 84443; 86706

== ENCOUNTER 2023-04-28 09:33 | Outpatient (CLI) | payer MEDICARE, SELFPAY ==
[2023-04-28 10:59] LABS: Albumin Level 4.1 g/dL (3.5-5.1); Anion Gap 5 mmol/L (8-16); Blood Urea Nitrogen 40 mg/dL (9-20); Calcium 9.2 mg/dL (8.4-10.2); Carbon Dioxide 28 mmol/L (22-30); Chloride 103 mmol/L (98-107); Estimated Glomerular Filt Rate 34; Glucose 131 mg/dL (65-110); Phosphorus 3.8 mg/dL (2.5-4.5); Potassium 4.4 mmol/L (3.4-5.0); Sodium 136 mmol/L (137-145)
== END 2023-04-28 09:34 | disposition home or self-care (01) ==
LOC: ANHLAB 09:34
PROVIDERS: PCP Family Medicine; Visit Provider Internal Medicine Nephrology
DX: N18.32 Chronic kidney disease, stage 3b (principal)
CPT/HCPCS: 36415; 80069

== ENCOUNTER 2023-04-29 10:14 | Emergency (ER) | payer MEDICARE, SELFPAY ==
[2023-04-29] VITALS (7 sets, daily range): BP systolic 139–167; BP diastolic 62–77; PULSE 60–63; RESP 10–15; TEMP 36.6; O2SAT 97–100
--- NOTE | ~2023-04-29 | CT_ITS ---
EXAMINATION: CT lumbar spine wo con DATE: 04/29/2023 11:52 INDICATION: Low back pain TECHNIQUE: Computed tomography (CT) of the lumbar spine was performed without intravenous contrast. T he dose-length product (DLP) was 585.86 mGy-cm. Iterative reconstruction was used. COMPARISON: 06/27/2020 FINDINGS: Bone alignment is normal. There is no fracture. There is vacuum disc phenomena and moderate loss of disc space height at L4-5 and L5-S1. Small degenerative osteophytes project from the anterio r endplates of multiple vertebral bodies. There is severe facet joint osteoarthritis of the lower lum bar spine. There are multilevel posterior disc bulges. There is moderate neuroforaminal stenosis on t he right at L3-4 and L4-5. There is severe neuroforaminal stenosis on the right at L5-S1. Calcified a therosclerosis is noted. IMPRESSION: 1. Moderate lumbar spondylosis with interval worsening since the comparison examination but without a cute findings. Reviewed, dictated and finalized at location A. IMPRESSION: 1. Moderate lumbar spondylosis with interval worsening since the comparison exa mination but without acute findings.
[2023-04-29] MEDS: traMADol HCL (*CRX) 25 MG TABLET PO (12:08)
[2023-04-29] MEDS: ACETAMINOPHEN 500 MG TABLET 1000 MG PO (12:09)
--- NOTE | 2023-04-29 13:44 | ED.BACK ---
HPI - Back Pain/Injury General Chief Complaint: Back Pain/Injury Stated Complaint: Right back and leg pain Time Seen by Provider: 04/29/23 10:29 Source: patient and old records reviewed Mode of arrival: ambulatory Limitations: no limitations History of Present Illness HPI Narrative: Patient is a 89-year-old male who presents to the ED with report of right low back pain, radiating down his right lower extremity. Patient reports having issues with pain over the last 1 month. Per records, patient has history of chronic back pain dating back to 2011. He is currently seeing pain management and is supposed to be receiving an MRI soon. He is also supposed to see Dr. Negro with neurosurgery soon. Patient reports pain became worse last night into today. Pain worse with ambulation and bearing weight on right leg. He has been taking Tylenol and ibuprofen for the pain with minimal relief. He has previously been prescribed tramadol, but he has not tried taking this. He did not take anything for pain prior to arrival. He reports having numbness and tingling into his leg which is chronic for him. Denies any changes in this. Denies any bowel bladder incontinence. Denies fever. Related Data Home Medications Medication Instructions Recorded Confirmed nitroglycerin 0.4 mg sublingual 0.4 mg sublingual Q5M PRN Chest 11/10/19 04/14/23 tablet Pain atorvastatin 40 mg tablet 40 mg PO HS 03/15/21 04/14/23 magnesium oxide 500 mg tablet 500 mg PO DAILY 03/19/21 04/14/23 mecobalamin (vitamin B12) 5,000 1,000 mcg PO DAILY 04/03/22 04/14/23 mcg lozenge pantoprazole 40 mg tablet,delayed 40 mg PO DAILY 03/31/23 04/14/23 release aspirin 81 mg tablet,delayed 81 mg PO DAILY 04/11/23 04/14/23 release (Adult Low Dose Aspirin) amlodipine 5 mg tablet 5 mg PO DAILY 04/22/23 ferrous fumarate 89 mg (29 mg 89 mg PO DAILY 04/22/23 iron) tablet Allergies Allergy/AdvReac Type Severity Reaction Status Date / Time No Known Allergies Allergy Unknown Verified 04/29/23 10:20 Review of Systems Review of Systems: CONSTITUTIONAL: Denies fever, chills, or sweats. GASTROINTESTINAL: Denies abdominal pain, nausea, vomiting, or diarrhea. GENITOURINARY: Denies incontinence, dysuria or hematuria. MUSCULOSKELETAL: See HPI. NEUROLOGIC: See HPI. All systems reviewed & are unremarkable except as noted in HPI and below PMFSH Past Medical History Medical History Adenomatous colon polyp Anemia Anxiety and depression Atrial fibrillation CAD (coronary artery disease) Stent x1 & x1 CKD (chronic kidney disease) stage 3, GFR 30-59 ml/min Degenerative disc disease, lumbar Environmental allergies Epigastric pain Family hx of colon cancer GERD (gastroesophageal reflux disease) Herpes simplex ophthalmicus History of lung cancer HLD (hyperlipidemia) Hypertension Hypothyroid Lung cancer 2015 Myocardial infarction 06/2019 Nausea Umbilical hernia Vitamin B12 deficiency Surgical History Surgical History 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 History of hand surgery 06/2019 - Right hand chondroma excision History of heart artery stent (~07/26/19) 1999, 06/2019 History of lobectomy of lung 2015 - RML History of lumbar laminectomy for spinal cord decompression 2012 History of right cataract surgery 2018 History of umbilical hernia repair 2007 Family History Family History Mother Family history of malignant neoplasm of trachea Carcinoma of colon Hypertension Hyperlipidemia Father Cancer Social History Social History Smoking packs per day: 1 Smoking cigarettes per day: 20.0 Years smoked: 30 Smoking pack-years: 30.00 Smoking status: Former smoker Tobacco type: cigarettes Al
== END 2023-04-29 13:57 | disposition home or self-care (01) ==
PROVIDERS: Emergency Provider Physician Assistant; PCP Family Medicine
DX: M54.41 Lumbago with sciatica, right side (principal); M47.26 Other spondylosis with radiculopathy, lumbar region; I12.9 Hypertensive chronic kidney disease with stage 1 through stage 4 chronic kidney disease, or unspecified chronic kidney disease; N18.30 Chronic kidney disease, stage 3 unspecified; I25.2 Old myocardial infarction; I25.10 Atherosclerotic heart disease of native coronary artery without angina pectoris; E78.5 Hyperlipidemia, unspecified; E03.9 Hypothyroidism, unspecified; E53.8 Deficiency of other specified B group vitamins; K21.9 Gastro-esophageal reflux disease without esophagitis; Z95.5 Presence of coronary angioplasty implant and graft; Z94.7 Corneal transplant status; Z85.118 Personal history of other malignant neoplasm of bronchus and lung; Z87.891 Personal history of nicotine dependence; Z98.41 Cataract extraction status, right eye; Z90.2 Acquired absence of lung [part of]; Z79.82 Long term (current) use of aspirin
CPT/HCPCS: 72131; 99284; A9270

== ENCOUNTER → 2023-05-05 11:04 | Outpatient (CLI) | payer MEDICARE, SELFPAY ==
--- NOTE | ~2023-05-05 | MR_ITS ---
MRI of the lumbar spine Clinical History: Radiculopathy Technique: Axial T2-weighted images, and sagittal T1-weighted, T2-weighted, and T2 fat-sat images wer e acquired. COMPARISON: 07/30/2011 Findings: There is no fracture or subluxation of the lumbar spine. Vertebral bodies maintain normal h eight and alignment. There are reactive marrow signal changes about the L5-S1 disc space due to under lying degenerative disc disease. At L1-L2, there is minimal disc bulge. There is moderate facet arthropathy. No central canal stenosis or definite neural foraminal narrowing. At L2-L3, there is diffuse disc bulge with moderate facet arthropathy. There is moderate to severe ce ntral canal stenosis/thecal sac compression at this level. There is moderate right neural foraminal n arrowing and moderate to severe left neural foraminal narrowing. At L3-L4, there is diffuse disc bulge and mild facet arthropathy. No central canal stenosis. There is severe bilateral neural foraminal narrowing. At L4-L5, there is diffuse disc bulge and moderate to advanced facet arthropathy. There is left later al recess stenosis with severe left neural foraminal compromise. There is also severe right neural fo raminal compromise. At L5-S1, there is diffuse disc bulge with advanced facet arthropathy. No central canal stenosis. The re is moderate to severe left neural foraminal narrowing, and severe right neural foraminal narrowing . Paravertebral soft tissues are unremarkable. Impression: Advanced degenerative spondylosis, as detailed above. There is multilevel advanced neural foraminal n arrowing. There is moderate to severe multifactorial central canal stenosis/thecal sac compression at L2-L3. Reviewed, dictated and finalized at [facility]. Impression: Advanced degenerative spondylosis, as detailed above. There is multilevel advan ellyn neural foraminal narrowing. There is moderate to severe multifactorial cent ral canal stenosis/thecal sac compression at L2-L3.
== END ==
PROVIDERS: PCP Family Medicine; Visit Provider Anesthesiology Pain Medicine
DX: M47.27 Other spondylosis with radiculopathy, lumbosacral region (principal)
CPT/HCPCS: 72148

== ENCOUNTER 2023-05-19 12:30 | Outpatient (RCR) | payer MEDICARE, SELFPAY ==
--- NOTE | 2023-04-25 13:52 | OPREHPOC ---
Outpatient Therapy Plan of Care This is a Multidisciplinary Plan of Care that may contain components documented by all disciplines (PT, OT, and ST.) PT Problem 1 PT Problem #1 Knowledge Deficit PT Goal 1 Goal Pt to be IND with issued HEP Target Visit 8 PT Problem 2 PT Problem #2 Pain PT Goal 1 Goal Pt to report pain no greater than 5/10 in the last week Target Visit 8 PT Goal 2 Goal Pt to report 75% improvement in overall symptoms Target Visit 8 PT Problem 3 PT Problem #3 Impaired Strength PT Goal 1 Goal Pt to improve hip abduction strength to grossly 4/ 5 Target Visit 8 PT Goal 2 Goal Pt to be able to lift and carry 20lb from ground level. PT Problem 4 PT Problem #4 Impaired Sensation PT Goal 1 Goal Pt to decline radicular symptoms in the last week Target Visit 8
--- NOTE | 2023-04-25 13:52 | PTOPEVAL1 ---
Assessment and note entered by Prabhakar Rowe, PT, DPT Evaluation Information Assessment Status Evaluation Diagnosis low back pain Subjective Information Pt states he has had this pain before in 2019. He states the pain is running across his hip, down his thigh, down his calf, and into his foot. He states his back hurts at its worse first thing in the morning. Pt states he has to complete therapy in order to have surgery. Pt states bending forward in his chair decreases his pain. Reported Pain Level Pain Score 4: Self Report Assessment PT Clinical Summary Howard Kuo presents to therapy today for his initial evaluation with a diagnosis of low back pain with spondylosis. Today he demonstrates tenderness to palpation throughout his lumbar and sacral region as well as R hip region. He demonstrates core and hip weakness leading to faulty sitting and walking positions. Skilled therapy services are indicated to address the deficits noted above, to manage pain, and to return to PLOF. Plan of Care Interventions Electrical Stimulation,Gait Training,Hot Pack/Cold Pack,Manual Therapy,Neuro Re-education,Patient/ Caregiver Educati,Therapeutic Activities, Therapeutic Exercise PT Services Indicated Yes Treatment Frequency and 2x/wk for 4 wks Duration These treatments will address the objective and functional deficits as defined above. The patient will be advanced safely and appropriately in order for the patient to progress towards his/her prior level of function. Additional exercises will be introduced and as well as a comprehensive home exercise program upon discharge, if needed, ?to ensure carryover of functional gains achieved in the clinic. This treatment plan has been reviewed and agreement upon by the patient.
--- NOTE | 2023-05-26 12:32 | PCPTNOTE ---
Patient called & cancelled scheduled appointment this date. He plans to call back to reschedule.
--- NOTE | 2023-06-23 11:49 | PTOPDC ---
Assessment and note entered by Prabhakar Rowe, PT, DPT Evaluation Information Assessment Status Discharge - Pt Not Present Diagnosis low back pain Subjective Information Called and spoke with patient to follow up as he cancelled his last visit. He states he is doing well and does not need to continue therapy. He will be discharged at this time. Assessment PT Clinical Summary Pt completed 5 visits of therapy from 04/25/23 to . If he needs additional therapy at a later date, he will need a new order. Plan of Care PT Services Indicated No
== END 2023-06-23 13:04 | disposition home or self-care (01) ==
LOC: ANHGOSHPT 12:30
PROVIDERS: PCP Family Medicine; Visit Provider Anesthesiology Pain Medicine
DX: M54.9 Dorsalgia, unspecified (principal); M47.817 Spondylosis without myelopathy or radiculopathy, lumbosacral region; M54.17 Radiculopathy, lumbosacral region; M51.36 Other intervertebral disc degeneration, lumbar region
CPT/HCPCS: 97014; 97110; 97140; 97161; 97530; G0283

== ENCOUNTER 2023-05-20 07:24 | Day surgery (SDC) | payer MEDICARE, SELFPAY ==
[2023-05-19 08:38] VITALS: BMI 25.1
--- NOTE | ~2023-05-20 | XR_ITS ---
XR fluoroscopy no charge PROCEDURE: Right L4-5, L5-S1 transforaminal epidural steroid injection TECHNIQUE: Fluoroscopy used during Right L4-5, L5-S1 transforaminal epidural steroid injection perfo rmed by [Howard Quintana MD] on 05/20/2023. 24 seconds of fluoroscopy with 75 fluoroscopic images captured. FINDINGS: Correlate with procedure note. IMPRESSION: Fluoroscopy used during Right L4-5, L5-S1 transforaminal epidural steroid injection. Plea se refer to procedural report. Reviewed, dictated and finalized at location A. IMPRESSION: Fluoroscopy used during Right L4-5, L5-S1 transforaminal epidural s teroid injection. Please refer to procedural report.
--- NOTE | 2023-05-20 07:23 | WPDHPUPDATE1 ---
History and Physical Update Update Date/Time: 05/20/23 07:23 History and Physical has been reviewed, including an updated exam of the patient. There are NO changes in the patient's condition. Risks, benefits, and alternatives have been discussed and questions answered. Patient agrees to proceed with procedure.
[2023-05-20 07:57] VITALS: BP 159/69; PULSE 58; RESP 20; O2SAT 100
[2023-05-20 09:00] VITALS: BP 166/106; PULSE 61; RESP 18; O2SAT 100
[2023-05-20 09:10] VITALS: BP 180/91; PULSE 61; RESP 18; O2SAT 100
[2023-05-20 09:14] VITALS: BP 150/89; PULSE 59; RESP 20; O2SAT 100
--- NOTE | 2023-05-20 09:14 | W.PM.PROC2 ---
Procedure Note - Detailed Date of Procedure 05/20/23 Pre-op Diagnosis Lumbosacral radiculopathy Post-op Diagnosis Same Procedure Performed Right L4-5. L5-S1 transforaminal epidural steroid injection with fluoroscopy. Surgeon Howard Quintana MD Anesthesia Local Description of Procedure INFORMED CONSENT: Risks, benefits and alternatives to the procedure were discussed in detail with the patient who expressed explicit understanding and consent to proceed. Patient was informed verbally and in written form regarding the risks associated with the procedure including the low risk of serious infection, bleeding/bruising, allergic reaction, nerve or organ injury, paralysis, procedural site pain or discomfort, worsening pain and/or mobility, failure to treat and/or disfigurement. The patient expressed explicit understanding and consent to proceed. All materials required for the procedure were available prior to procedure start. Site and side was marked prior to procedure and confirmed in the presence of the patient. PROCEDURE IN DETAIL: The patient was brought to the procedural suite and placed in the prone position. Patient was made comfortable with use of pillows under the head/chest, hips and ankles. Skin overlying the injection site was prepared broadly with ChloraPrep applicator and draped in a sterile manner. Aseptic technique was employed throughout. The endplates of the vertebral body at the site of interest were aligned in the AP view. Ipsilateral oblique angulation was utilized to better visualize the neuroforamen of interest. Local anesthesia was established by infiltration with approximately 5 mL of 2% lidocaine via a 1-1/2 inch 27-gauge needle. A 22-gauge 3.5 inch Jennifer (pencil point) spinal needle was advanced until the needle approached the 6 o'clock position on the pedicle just superior to the exiting nerve root. on the right at L4-5. Lateral view was utilized to confirm appropriate position of the needle tip within the superior and posterior portion of the respective foramen. In an AP view, 1 mL of Omnipaque 300 contrast medium was injected after negative aspiration for CSF, blood or other bodily fluid, showing appropriate neurogram without evidence of intravascular or intrathecal spread of contrast. Digital subtraction imaging was used with an additional 1ml of the same contrast medium to confirm absence of intravascular contrast spread. A 1mL solution containing 5 mg of dexamethasone was injected after negative repeat aspiration. Appropriate spread of the injectate was confirmed with washout of previously injected contrast. No parasthesias were elicited. Needle was removed completely intact without difficulty. The same exact procedure was repeated for all remaining levels on the ipsilateral side, right L5-S1 neuroforamen, modified as necessary to accommodate for the new target location with identical findings and results and no evidence of complication. Images were saved and documented in the patient chart. Patient's skin was cleaned and sterile bandage applied. The patient tolerated the procedure well. The patient was transported to the recovery area in stable condition where they were observed for an appropriate amount of time prior to discharge, without evidence of complication. The patient was instructed to avoid excessive activity for the next 48 hours, including climbing and frequent use of stairs. Showers only for 48 hours. They were instructed not to drive or operate heavy machinery for 24 hours. They are to monitor for severe headaches, fevers, chills, night sweats, erythema/swelling at the site or any other signs of infection, bleeding/bruising, bowel or bladder changes as well as new pain, weakness or numbness in the upper or lower extremity. Should they notice these changes, they are instructed to call our office immediately or report directly to the nearest Emergency Department if no answer or if after posted office hours. COMPLICATIONS: None
[2023-05-20] MEDS: LIDOCAINE HCL 1% PF INJ 5 ML VIAL AFFCTD EYE (10:00)
[2023-05-20] MEDS: LIDOCAINE HCL 2% PF INJ 5 ML VIAL 1 ML INFILTRATE (10:24)
== END 2023-05-20 09:27 | disposition home or self-care (01) ==
LOC: ASC 07:34
PROVIDERS: PCP Family Medicine; Visit Provider Anesthesiology Pain Medicine
PROC: (CPT 64483; principal; 2023-05-20 08:30)
DX: M54.16 Radiculopathy, lumbar region (principal)
CPT/HCPCS: 64483; 99199

== ENCOUNTER 2023-07-11 09:37 | Outpatient (CLI) | payer MEDICARE, SELFPAY ==
--- NOTE | ~2023-07-11 | XR_ITS ---
EXAMINATION: XR chest 2V DATE: 07/11/2023 10:28 INDICATION: Lung cancer. Preop. TECHNIQUE: Frontal and lateral views of the chest were obtained. COMPARISON: Chest single view 03/18/2022 FINDINGS: There are surgical changes of right lung, likely a lobectomy. No pleural effusion or pneumo thorax. The heart size is normal. There are prominent paracardial fat pads. There is chronic anterior wedging of multiple vertebral bodies. IMPRESSION: 1. No acute cardiopulmonary disease. Reviewed, dictated and finalized at location A.
--- NOTE | 2023-07-11 09:58 | ECG_ITS ---
Measurements Intervals Bryant Rate: 57 P: 19 TN: 205 QRS: 1 QRSD: 85 T: 3 QT: 408 QTc: 400 Interpretive Statements SINUS BRADYCARDIA CONSIDER INFERIOR INFARCT, AGE INDETERMINATE ABNORMAL ECG COMPARED TO ECG 03/18/2022 14:23:37 SINUS BRADYCARDIA NOW PRESENT Electronically Signed On 07-11-2023 11:01:07 CDT by Eleazar Anguiano D.O.
[2023-07-11 10:34] LABS: Basophils Absolute Auto 0.1 K/mm3 (0.0-0.1); Eosinophils Absolute Auto 0.2 K/mm3 (0-0.3); Eosinophils Percent Auto 3.6 % (0-4.4); Hematocrit 36.9 % (42.0-52.0); Immature Granulocyte Absolute 0.08 K/mm3 (0.00-0.031); Immature Granulocyte Percent A 1.6 % (0-0.5); Lymphocytes Absolute Auto 0.97 K/mm3 (0.9-3.2); Lymphocytes Percent Auto 19.1 % (18.3-44.2); Mean Corpuscular HGB Conc 32.5 g/dl (32-36); Mean Corpuscular Hemoglobin 34.4 pg (26-34); Mean Corpuscular Volume 105.7 fl (80-100); Mean Platelet Volume 10.4 fl (7.4-10.4); Monocytes Absolute Auto 0.5 K/mm3 (0.1-0.6); Monocytes Percent Auto 9.3 % (2.6-8.5); Neutrophils Absolute Auto 3.3 K/mm3 (1.3-6.7); Neutrophils Percent Auto 65.4 % (45.5-73.1); Platelet Count Result 187 k/mm3 (150-375); Red Blood Count 3.49 M/mm3 (4.6-6.20); Red Cell Distribution Width 12.7 % (11.5-14.5); White Blood Count 5.1 K/mm3 (4.5-10.0)
[2023-07-11 10:48] LABS: Alanine Aminotransferase 30 U/L (6-50); Albumin Level 4.2 g/dL (3.5-5.1); Alkaline Phosphatase 51 U/L (38-126); Anion Gap 5 mmol/L (8-16); Aspartate Amino Transferase 32 U/L (17-59); Bilirubin,Total 0.5 mg/dL (0.2-1.3); Blood Urea Nitrogen 27 mg/dL (9-20); Calcium 9.4 mg/dL (8.4-10.2); Carbon Dioxide 28 mmol/L (22-30); Chloride 105 mmol/L (98-107); Estimated Glomerular Filt Rate 45; Glucose 92 mg/dL (65-110); Partial Thromboplastin Time 29.2 SECONDS (22.3-36.8); Potassium 4.5 mmol/L (3.4-5.0); Prothrombin Time 13.6 Seconds (11.1-14.7); Sodium 138 mmol/L (137-145)
== END 2023-07-11 09:38 | disposition home or self-care (01) ==
LOC: ANHSURGERY 09:41
PROVIDERS: PCP Family Medicine; Visit Provider Anesthesiology Pain Medicine
DX: M48.00 Spinal stenosis, site unspecified (principal); E53.8 Deficiency of other specified B group vitamins; D64.9 Anemia, unspecified; I10 Essential (primary) hypertension; I25.10 Atherosclerotic heart disease of native coronary artery without angina pectoris; Z85.118 Personal history of other malignant neoplasm of bronchus and lung
CPT/HCPCS: 36415; 71046; 80053; 85025; 85610; 85730; 93005

== ENCOUNTER 2023-07-14 01:54 | Day surgery (SDC) | payer MEDICARE, SELFPAY ==
[2023-07-08 14:33] VITALS: BMI 25.1
--- NOTE | 2023-07-08 14:54 | PC.NURSE ---
Addendum entered by Sarah Jamison RN 07/11/23 09:52: CORRECTION TO ARRIVAL DATE: SURGERY DATE IS 07/14 Original Note: PRE-OP INSTRUCTIONS, PLEASE READ CAREFULLY Report to the Outpatient Waiting Room, entrance under the green pavilion located off [facility], at time _0700_ on date _07/08/23_. Planned Procedure Time: _0900_. PACK A SMALL OVERNIGHT BAG AND LEAVE IN THE CAR Time changes happen often and if your time is changed the preop area will call you the afternoon before. - You and your visitor will be asked to self-screen and do not enter if you have any COVID symptoms. - A mask is optional within the hospital at this time. Patients may have clear liquids (water, carbonated beverages, clear teas, apple juice) until 3 hours prior to surgery (0600 AM) with a maximum of 20 ounces. - No food from midnight until time of surgery Take the following medications with a SIP of water the morning of surgery: _ACYCLOVIR, AMLODIPINE, BUPROPION, LEVOTHYROXINE & TRAMADOL, NITROGLYCERIN IF NEEDED_ DO NOT STOP ANY OF YOUR OTHER PRESCRIPTION MEDICATIONS PRIOR TO SURGERY ?EXCEPT THE FOLLOWING Medications to discontinue per DR. BABCOCK - _ASPIRIN, Date to take last dose 07/08/23_ Please no make-up, nail korean, hairspray, perfume, deodorant, or body powder the day of surgery. No jewelry (including any body piercings) or valuables the day of surgery, leave them at home. Please take a shower or bath the night before, or the morning of, surgery with an antibacterial soap. Wear comfortable, loose fitting clothing. - Jewelry must be removed prior to entering the operating room. Rings and piercings that are not removed may be cut off. - The hospital will not accept responsibility for valuables. - Please leave all valuables, including medications, at home the day of surgery. If you are going home after surgery, a licensed customer service driver must drive you home. - NO public transportation without another adult if you receive anesthesia. - We recommend that an adult stay with you for 24 hours following discharge. - We also recommend that you do not drive, make important decision, drink alcoholic beverages, or take any drugs that were not prescribed by your health care provider for at least 24 hours after your discharge time. Follow any additional instructions given to you from your surgeon. If you or anyone in your household have experienced Covid symptoms in the past week, please notify your surgeon or the nurse liaison at the phone number below for possible testing. Telephone instructions given to _PATIENT_and asked if any additional questions and then verbalized understanding. Patient advised to call surgeon office or pre surgery nurse liaison [phone] if any additional questions.
--- NOTE | ~2023-07-14 | XR_ITS ---
EXAMINATION: XR fluoroscopy no charge DATE: 07/14/2023 10:04 INDICATION: Lumbar decompression TECHNIQUE: 4 fluoroscopic images of the lumbar spine were obtained during procedure performed by Dr. Quintana. Radiologist was not present for the imaging or procedure. The amount of fluoroscopy time used d uring this procedure was 10.5 minutes. COMPARISON: None. FINDINGS: Fluoroscopic images demonstrate metallic probes likely for marking projecting successfully over the i nterlaminar spaces at the left and right sides of L2-L3 and L3-L4. Prominent atherosclerotic calcific location along the aorta. IMPRESSION: 1. Fluoroscopy utilized during surgical procedure at the lumbar spine. See procedure note for further detail. Reviewed, dictated and finalized at location A. IMPRESSION: 1. Fluoroscopy utilized during surgical procedure at the lumbar spine. See proc edure note for further detail.
[2023-07-14 07:05] VITALS: BP 125/58; PULSE 59; RESP 16; TEMP 36.3; O2SAT 98; BMI 25.8
--- NOTE | 2023-07-14 07:53 | WPDANESEPPF ---
Anes - Initial Pre Proc Eval Procedure: Operation Date: 07/14/23 09:00 Proposed Procedures p Minimally Invasive Lumbar Decompression L2-3, L3-4 - Howard Quintana MD Date/Time: 07/14/23 07:53 Surgeon: Howard Quintana MD Pre Op Diagnosis: spinal stenosis Patient Data Age: 82 Gender: M Height: 1.73 m Weight: 75 kg Allergies Allergy/AdvReac Type Severity Reaction Status Date / Time No Known Allergies Allergy Unknown Verified 07/08/23 14:25 Home Medications Medication Instructions Recorded Confirmed Type nitroglycerin 0.4 mg sublingual 0.4 mg sublingual Q5M PRN Chest 11/10/19 07/08/23 History tablet Pain atorvastatin 40 mg tablet 40 mg PO HS 03/15/21 07/08/23 History magnesium oxide 500 mg tablet 500 mg PO DAILY 03/19/21 07/08/23 History mecobalamin (vitamin B12) 5,000 1,000 mcg PO DAILY 04/03/22 07/08/23 History mcg lozenge hydrochlorothiazide 25 mg tablet 25 mg PO DAILY #100 tabs 02/11/23 07/08/23 Rx pantoprazole 40 mg tablet,delayed 40 mg PO DAILY 03/31/23 07/08/23 History release acyclovir 800 mg tablet 800 mg PO DAILY #90 tabs 04/04/23 07/08/23 Rx aspirin 81 mg tablet,delayed 81 mg PO DAILY 04/11/23 07/08/23 History release (Adult Low Dose Aspirin) bupropion HCl 100 mg tablet,12 hr 100 mg PO BID #180 tabs 04/14/23 07/08/23 Rx sustained-release levothyroxine 88 mcg tablet 88 mcg PO DAILY #90 tabs 04/18/23 07/08/23 Rx amlodipine 5 mg tablet 5 mg PO DAILY #90 tabs 05/13/23 07/08/23 Rx metoclopramide HCl 5 mg tablet 5 mg PO DAILY 05/19/23 07/08/23 History (Reglan) lisinopril 20 mg tablet 20 mg PO BID #180 tabs 05/20/23 07/08/23 Rx tramadol 50 mg tablet 50 mg PO Q6H PRN pain #10 tabs 06/13/23 07/08/23 Rx calcium carbonate 600 mg calcium 600 mg PO DAILY 07/08/23 07/08/23 History (1,500 mg) tablet (Calcium) ferrous sulfate 324 mg (65 mg 324 mg PO EVERY OTHER DAY 07/08/23 07/08/23 History iron) tablet,delayed release metoprolol succinate 100 mg 100 mg PO HS 07/08/23 07/08/23 History tablet,extended release 24 hr Patient hx anesthesia problems: none Family hx anesthesia problems: none Results Review: All pre-operative results and documents have been reviewed as part of the pre-operative evaluation. 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 History of hand surgery 06/2019 - Right hand chondroma excision History of heart artery stent (~07/26/19) 1999, 06/2019 History of lobectomy of lung 2015 - RML History of lumbar laminectomy for spinal cord decompression 2011 History of right cataract surgery 2018 History of umbilical hernia repair 2007 Family History Family History Mother Family history of malignant neoplasm of trachea Carcinoma of colon Hypertension Hyperlipidemia Father Cancer Social History Social History Smoking packs per day: 1.5 Smoking cigarettes per day: 30.0 Years smoked: 30 Smoking pack-years: 45.00 Smoking status: Former smoker Tobacco type: cigarettes Second hand tobacco smoke exposure: No Smoking end date: 10/27/09 Alcohol intake: current Drinks per week: 14 Alcohol use details: DRINKS Substance u
--- NOTE | 2023-07-14 08:29 | PM.HPGS ---
History of Present Illness History of Present Illness Consent: Risks, benefits, and alternatives have been discussed and questions answered. Patient agrees to proceed with procedure. Chief complaint: spinal stenosis, neurogenic claudication Narrative: Howard Tristan is a 82 year old male with chronic, recalcitrant pain with moderate to severe physical limitations secondary to moderate to severe central lumbar spinal stenosis with intermittent neurogenic claudication and ligamentum flavum hypertophy for bilateral L2-3, L-4 MILD procedure. 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 History of hand surgery 06/2019 - Right hand chondroma excision History of heart artery stent (~07/26/19) 1999, 06/2019 History of lobectomy of lung 2014 - RML History of lumbar laminectomy for spinal cord decompression 2011 History of right cataract surgery 2018 History of umbilical hernia repair 2007 Family History Family History Mother Family history of malignant neoplasm of trachea Carcinoma of colon Hypertension Hyperlipidemia Father Cancer Social History Social History Smoking packs per day: 1.5 Smoking cigarettes per day: 30.0 Years smoked: 30 Smoking pack-years: 45.00 Smoking status: Former smoker Tobacco type: cigarettes Second hand tobacco smoke exposure: No Smoking end date: 10/27/09 Alcohol intake: current Drinks per week: 14 Alcohol use details: DRINKS Substance use: never Substance use type: does not use Lack of Transportation: No Lack of Food: Never True Current Housing: I Have Housing Concerned About Future Housing: No Difficulty Paying Gas/Electric Bills: No Difficulty Paying for Meds: No Currently Unemployed: No Education: Master's Degree or Higher Difficulty w/ Childcare or Family Care: No Living arrangements: with family Additional living arrangements comments: Occupation/Education: retired Gender identity (if verbalized by the patient): Male Sexual Orientation (if Verbalized by the Patient): Straight or Heterosexual Spiritual care concerns: No Agree to blood products: Yes Meds Home Medications and Allergies Home Medications Medication Instructions Recorded Confirmed Type nitroglycerin 0.4 mg sublingual 0.4 mg sublingual Q5M PRN Chest 11/10/19 07/08/23 History tablet Pain atorvastatin 40 mg tablet 40 mg PO HS 03/15/21 07/08/23 History magnesium oxide 500 mg tablet 500 mg PO DAILY 03/19/21 07/08/23 History mecobalamin (vitamin B12) 5,000 1,000 mcg PO DAILY 04/03/22 07/08/23 History mcg lozenge hydrochlorothiazide 25 mg tablet 25 mg PO DAILY #100 tabs 02/11/23 07/08/23 Rx pantoprazole 40 mg tablet,delayed 40 mg PO DAILY 03/31/23 07/08/23 History release acyclovir 800 mg tablet 800 mg PO DAILY #90 tabs 04/04/23 07/08/23 Rx aspirin 81 mg tablet,delayed 81 mg PO DAILY 04/11/23 07/08/23 History release (Adult Low Dose Aspirin) bupropion HCl 100 mg tablet,12 hr 100 mg PO BID #180 tabs 04/14/23 07/08/23 Rx sustained-release levothyroxine 88 mcg tablet 88 mcg PO DAILY #90 tabs 04/18/23 07/08/23 Rx amlodipine 5 m
--- NOTE | 2023-07-14 08:36 | WPDHPUPDATE1 ---
History and Physical Update Update Date/Time: 07/14/23 08:36 History and Physical has been reviewed, including an updated exam of the patient. There are NO changes in the patient's condition. Risks, benefits, and alternatives have been discussed and questions answered. Patient agrees to proceed with procedure.
[2023-07-14] MEDS: LACTATED RINGERS 1,000 ML 30 ML IV CONT (08:45)
[2023-07-14] MEDS: ceFAZolin 2 GM/D5W 50 ML 2 GM/50 ML BAG IVPB (08:57)
[2023-07-14] MEDS: LIDO 1%/EPINEPHRINE 1:100,000 50 ML VIAL 18 ML INFILTRATE (09:56)
[2023-07-14] MEDS: BUPIVACAINE/EPINEPHRINE 0.5% 50 ML VIAL 18 ML INFILTRATE (09:57)
[2023-07-14 10:10] VITALS: BP 119/57; PULSE 62; RESP 20; O2SAT 97
[2023-07-14 10:40] VITALS: BP 128/52; PULSE 58; RESP 20; O2SAT 98
[2023-07-14 11:10] VITALS: BP 136/61; PULSE 56; RESP 20
--- NOTE | 2023-07-14 11:48 | SUR.PHASEII ---
DR. BABCOCK CALLED IN OR RE: ACTIVITY LEVEL FOR WEEK 1; DR. BABCOCK SAID FOR HIM TO REST X 48 HOURS. MESSAGE RELAYED TO PATIENT AND SPOUSE. DR. BABCOCK ASKED TO CALL PATIENT AT HOME SINCE HE HADN'T TALKED TO SPOUSE AFTER SURGERY.
--- NOTE | 2023-07-14 12:12 | W.PM.PROC2 ---
Procedure Note - Detailed Date of Procedure 07/14/23 Pre-op Diagnosis spinal stenosis, neurogenic claudication Post-op Diagnosis Same Procedure Performed Bilateral L2-3, L3-4 minimally invasive lunmbar decompression (MILD) with fluoroscopic guidance. Surgeon Howard Quintana MD Anesthesia MAC and Local Description of Procedure INFORMED CONSENT: Risks, benefits, and alternatives to the procedure were discussed in detail with the patient who expressed explicit understanding and consent to proceed. Risks discussed with the patient included but were not limited to risk of serious local or systemic infection, bleeding/bruising, epidural hematoma, dural puncture or tear resulting in CSF leak and acute or chronic post-dural puncture headache, scarring/deformity, immediate or delayed allergic reaction, decreased mobility, failure to treat pain, inadvertent neurologic injury resulting in increased pain, weakness/paralysis or numbness, inadvertent organ injury, need for additional surgery, allergic reaction, heart attack, stroke, seizure, coma, . Anesthetic risks were also briefly discussed by myself and the personal lines advisor. The patient expressed understanding and consent to proceed, agreeing that potential benefits outweigh risk of harm. All materials required for the procedure were immediately available prior to procedure start. Site and side were confirmed with the patient, compared carefully to the patient chart and consent, and marked prior to transport to the operating room. Appropriate time out procedure was performed per protocol prior to procedure start. PROCEDURE IN DETAIL: The patient was brought to the operative suite and placed in the prone position. Appropriate ASA standard monitors were attached. Anesthesia was initiated without difficulty or event. Eyes were protected. Pressure points were padded with joints in neutral position. When appropriate, breasts and genitals were evaluated and protected. Eyes were checked and were free from undue pressure. Skin overlying the procedure site was marked with sterile marker. Surgical area was prepared in a typical sterile fashion with ChloraPrep and allowed to dry for at least 3 minutes prior to sterilely draping the surgical site. The lumbar spine was identified in the AP fluoroscopic view with slight cephalad tilt perfectly aligning the endplates at the targeted levels with spinous processes bisecting the transpedicular plane. After identifying the intended incision site approximately 1.5 levels inferior to the level of interest, the area was anesthetized by infiltration with no more than 10ml of a 1:1 admixture of 0.5% PF bupivacaine with epinephrine and 2% PF lidocaine with epinepherine via a 27-gauge needle after negative aspiration. A 22-gauge spinal needle was used to provide additional and adequate local anesthesia to the level of the interspinous ligament, ligamentum flavum and the periosteum of the lamina at the intended treatment levels. In the AP view, a #11 scalpel blade was used to create a single stab incision at the intended incision site on the targeted side. The Vertos MILD kit was opened and the included cannula and trocar assembly was advanced through the incision to contact the midportion of the right lamina just adjacent to the spinous process at L4. Once seated, the lateral view was used to gauge depth demonstrating the most anterior tip of the trocar posterior to the epidural space at all times. The mechanical shovel operator-provided cannula stabilizer was placed over the trocar flush to the patient's lumbar flank. Cannula obturator with handle was removed. Included depth guide was then attached to the insertion port on the cannula and set to an intial depth of 15 mm. The bone rongeur was advanced to the depth of the lumbar lamina at the targeted level. Depth gauge was then adjusted allowing rongeur tip to advance in the contralateral oblique view to the anterior border of the superior and inferior
== END 2023-07-14 11:40 | disposition home or self-care (01) ==
PROVIDERS: PCP Family Medicine; Visit Provider Anesthesiology Pain Medicine
PROC: (CPT 0275T; principal; 2023-07-14 09:00)
DX: M48.062 Spinal stenosis, lumbar region with neurogenic claudication (principal); Z00.6 Encounter for examination for normal comparison and control in clinical research program; I25.10 Atherosclerotic heart disease of native coronary artery without angina pectoris; I12.9 Hypertensive chronic kidney disease with stage 1 through stage 4 chronic kidney disease, or unspecified chronic kidney disease; N18.30 Chronic kidney disease, stage 3 unspecified; E03.9 Hypothyroidism, unspecified; I25.2 Old myocardial infarction; E78.5 Hyperlipidemia, unspecified; K21.9 Gastro-esophageal reflux disease without esophagitis; D64.9 Anemia, unspecified; F41.8 Other specified anxiety disorders; E53.8 Deficiency of other specified B group vitamins; Z85.118 Personal history of other malignant neoplasm of bronchus and lung; Z79.82 Long term (current) use of aspirin; Z90.2 Acquired absence of lung [part of]; Z87.891 Personal history of nicotine dependence
CPT/HCPCS: 0275T; 99199; C1889; J0690; J2704; J3010; J7120

== ENCOUNTER 2023-08-04 11:38 | Outpatient (CLI) | payer MEDICARE, SELFPAY ==
[2023-08-04 12:02] LABS: Hematocrit 35.8 % (42.0-52.0); Hemoglobin 11.6 g/dL (14.0-18.0); Mean Corpuscular HGB Conc 32.4 g/dl (32-36); Mean Corpuscular Hemoglobin 33.9 pg (26-34); Mean Corpuscular Volume 104.7 fl (80-100); Mean Platelet Volume 10.1 fl (7.4-10.4); Platelet Count Result 218 k/mm3 (150-375); Red Blood Count 3.42 M/mm3 (4.6-6.20); Red Cell Distribution Width 12.4 % (11.5-14.5); White Blood Count 5.9 K/mm3 (4.5-10.0)
[2023-08-04 16:40] LABS: Total Protein Urine Random 11 mg/dL; Ur Ttl Prot Creatinine Ratio 0.16 mg/mg (0-0.20)
[2023-08-04 16:47] LABS: Albumin Level 4.5 g/dL (3.5-5.1); Anion Gap 9 mmol/L (8-16); Blood Urea Nitrogen 27 mg/dL (9-20); Calcium 9.5 mg/dL (8.4-10.2); Carbon Dioxide 27 mmol/L (22-30); Chloride 102 mmol/L (98-107); Estimated Glomerular Filt Rate 42; Glucose 103 mg/dL (65-110); Phosphorus 3.8 mg/dL (2.5-4.5); Potassium 4.9 mmol/L (3.4-5.0); Sodium 138 mmol/L (137-145)
[2023-08-04 16:50] LABS: Parathyroid Intact 52.5 pg/mL (7.5-53.5)
[2023-08-04 16:54] LABS: Vitamin D 25 Hydroxy 48.5 ng/mL
== END 2023-08-04 11:39 | disposition home or self-care (01) ==
PROVIDERS: Internal Medicine Nephrology; PCP Family Medicine; Visit Provider Internal Medicine Hematology & Oncology
DX: N18.32 Chronic kidney disease, stage 3b (principal); E21.1 Secondary hyperparathyroidism, not elsewhere classified
CPT/HCPCS: 36415; 80069; 82306; 82570; 83970; 84156; 85027

== ENCOUNTER 2023-09-17 11:47 | Outpatient (CLI) | payer MEDICARE, SELFPAY ==
[2023-09-17 12:10] LABS: Basophils Percent Auto 0.6 % (0.2-1.2); Eosinophils Absolute Auto 0.1 K/mm3 (0-0.3); Eosinophils Percent Auto 2.1 % (0-4.4); Hemoglobin 11.3 g/dL (14.0-18.0); Immature Granulocyte Absolute 0.05 K/mm3 (0.00-0.031); Immature Granulocyte Percent A 0.8 % (0-0.5); Lymphocytes Percent Auto 16.6 % (18.3-44.2); Mean Corpuscular HGB Conc 33.2 g/dl (32-36); Mean Corpuscular Hemoglobin 34.2 pg (26-34); Mean Platelet Volume 9.8 fl (7.4-10.4); Monocytes Absolute Auto 0.7 K/mm3 (0.1-0.6); Monocytes Percent Auto 10.3 % (2.6-8.5); Neutrophils Absolute Auto 4.6 K/mm3 (1.3-6.7); Neutrophils Percent Auto 69.6 % (45.5-73.1); Platelet Count Result 212 k/mm3 (150-375); Red Cell Distribution Width 12.7 % (11.5-14.5); White Blood Count 6.6 K/mm3 (4.5-10.0)
[2023-09-17 17:10] LABS: Chloride 104 mmol/L (98-107)
[2023-09-17 17:18] LABS: Iron 112 ug/dL (49-181)
[2023-09-17 17:19] LABS: Anion Gap 13 mmol/L (8-16); Blood Urea Nitrogen 52 mg/dL (9-20); Calcium 9.6 mg/dL (8.4-10.2); Carbon Dioxide 24 mmol/L (22-30); Estimated Glomerular Filt Rate 26; Glucose 127 mg/dL (65-110); Potassium 4.9 mmol/L (3.4-5.0); Sodium 141 mmol/L (137-145)
[2023-09-17 18:51] LABS: Percent Iron Saturation 42 % (20-50)
[2023-09-17 20:08] LABS: Folic Acid 15.6 ng/mL (2.76->20); Vitamin B12 > 1000.0 pg/mL (239-931)
== END 2023-09-17 11:48 | disposition home or self-care (01) ==
LOC: ANHLAB 11:49
PROVIDERS: PCP Family Medicine; Visit Provider Internal Medicine Hematology & Oncology
DX: D64.9 Anemia, unspecified (principal)
CPT/HCPCS: 36415; 80048; 82607; 82728; 82746; 83540; 83550; 85025

== ENCOUNTER 2023-10-06 12:04 | Outpatient (CLI) | payer MEDICARE, SELFPAY ==
[2023-10-06 12:33] LABS: Hematocrit 33.2 % (42.0-52.0); Mean Corpuscular HGB Conc 33.1 g/dl (32-36); Mean Corpuscular Hemoglobin 34.1 pg (26-34); Mean Corpuscular Volume 102.8 fl (80-100); Mean Platelet Volume 10.1 fl (7.4-10.4); Platelet Count Result 185 k/mm3 (150-375); Red Blood Count 3.23 M/mm3 (4.6-6.20); Red Cell Distribution Width 12.8 % (11.5-14.5); White Blood Count 6.4 K/mm3 (4.5-10.0)
[2023-10-06 16:21] LABS: Appearance Urine Clear (Clear); Bilirubin Urine Negative (Negative); Blood Urine Negative (Negative); Color Urine Yellow (Yellow); Glucose Urine UA Negative (Negative); Ketones Urine Negative (Negative); Leukocyte Esterase Ur Negative LEU/UL (NEGATIVE); Nitrate Urine Negative (Negative); Protein Urine Negative (Negative); Specific Grav Ur 1.015 (1.001-1.035); Urobilinogen Urine 0.2 mg/dL (<2.0)
[2023-10-06 16:22] LABS: Add Urine Microscopic? NO
[2023-10-06 16:33] LABS: Total Protein Urine Random 8 mg/dL
[2023-10-06 16:44] LABS: Vitamin D 25 Hydroxy 35.9 ng/mL
[2023-10-06 16:49] LABS: Sodium Urine Random 83 meq/L
[2023-10-06 16:56] LABS: Creatinine Urine 100.7 mg/dL; Ur Ttl Prot Creatinine Ratio 0.08 mg/mg (0-0.20)
[2023-10-06 18:48] LABS: Albumin Level 4.1 g/dL (3.5-5.1); Anion Gap 5 mmol/L (8-16); Blood Urea Nitrogen 27 mg/dL (9-20); Calcium 9.4 mg/dL (8.4-10.2); Carbon Dioxide 27 mmol/L (22-30); Chloride 107 mmol/L (98-107); Estimated Glomerular Filt Rate 39; Glucose 95 mg/dL (65-110); Phosphorus 3.5 mg/dL (2.5-4.5); Potassium 4.8 mmol/L (3.4-5.0); Sodium 139 mmol/L (137-145)
[2023-10-06 20:02] LABS: Folic Acid 7.5 ng/mL (2.76->20); Vitamin B12 > 1000.0 pg/mL (239-931)
== END 2023-10-06 12:05 | disposition home or self-care (01) ==
LOC: ANHLAB 12:05
PROVIDERS: PCP Family Medicine; Visit Provider Internal Medicine Nephrology
DX: R53.83 Other fatigue (principal); E21.1 Secondary hyperparathyroidism, not elsewhere classified; N18.32 Chronic kidney disease, stage 3b
CPT/HCPCS: 36415; 80069; 81003; 82306; 82570; 82607; 82746; 83970; 84156; 84300; 84443; 85027

== ENCOUNTER 2023-10-08 10:54 | Outpatient (CLI) | payer MEDICARE, SELFPAY ==
--- NOTE | ~2023-10-08 | US_ITS ---
EXAMINATION: US renal BI DATE: 10/08/2023 12:09 INDICATION: Acute kidney failure, unspecified TECHNIQUE: Multiple grayscale and Doppler ultrasound images of the kidneys were obtained. COMPARISON: 10/15/2022 FINDINGS: The right kidney measures 11 x 5 x 6 cm. The left kidney measures 10 x 5 x 5.5 cm. The kidn eys demonstrate normal parenchymal echogenicity. There is no hydronephrosis. The bladder is normal. IMPRESSION: 1. Normal kidneys without hydronephrosis. Reviewed, dictated and finalized at location B. CUTTER
== END 2023-10-08 10:55 | disposition home or self-care (01) ==
PROVIDERS: PCP Family Medicine; Visit Provider Internal Medicine Nephrology
DX: N17.9 Acute kidney failure, unspecified (principal)
CPT/HCPCS: 76775

== ENCOUNTER 2023-10-21 13:23 | Outpatient (CLI) | payer MEDICARE, SELFPAY ==
[2023-10-21 19:20] LABS: Alanine Aminotransferase 26 U/L (6-50); Albumin Level 4.1 g/dL (3.5-5.1); Alkaline Phosphatase 79 U/L (38-126); Amylase 63 U/L (30-110); Anion Gap 11 mmol/L (8-16); Aspartate Amino Transferase 36 U/L (17-59); Bilirubin,Total 0.6 mg/dL (0.2-1.3); Blood Urea Nitrogen 25 mg/dL (9-20); Calcium 9.8 mg/dL (8.4-10.2); Carbon Dioxide 23 mmol/L (22-30); Chloride 104 mmol/L (98-107); Estimated Glomerular Filt Rate 32; Glucose 134 mg/dL (65-110); Lipase 54 U/L (23-300); Potassium 3.9 mmol/L (3.4-5.0); Sodium 138 mmol/L (137-145)
[2023-10-21 19:39] LABS: Basophils Percent Auto 0.6 % (0.2-1.2); Eosinophils Absolute Auto 0.2 K/mm3 (0-0.3); Eosinophils Percent Auto 3.6 % (0-4.4); Hemoglobin 11.4 g/dL (14.0-18.0); Immature Granulocyte Absolute 0.05 K/mm3 (0.00-0.031); Immature Granulocyte Percent A 0.8 % (0-0.5); Lymphocytes Absolute Auto 1.12 K/mm3 (0.9-3.2); Lymphocytes Percent Auto 16.9 % (18.3-44.2); Mean Corpuscular HGB Conc 32.6 g/dl (32-36); Mean Corpuscular Volume 104.5 fl (80-100); Mean Platelet Volume 10.3 fl (7.4-10.4); Monocytes Absolute Auto 0.7 K/mm3 (0.1-0.6); Neutrophils Absolute Auto 4.4 K/mm3 (1.3-6.7); Neutrophils Percent Auto 67.1 % (45.5-73.1); Platelet Count Result 224 k/mm3 (150-375); Red Blood Count 3.35 M/mm3 (4.6-6.20); Red Cell Distribution Width 13.2 % (11.5-14.5); White Blood Count 6.6 K/mm3 (4.5-10.0)
[2023-10-22 08:28] LABS: Free T4 Free Thyroxine Reflex 1.48 ng/dL (0.78-2.19)
[2023-10-22 09:26] LABS: Total Triiodothyronine (T3) 0.88 NG/ML (0.97-1.69)
== END 2023-10-21 13:24 | disposition home or self-care (01) ==
LOC: ANHGOSHLAB 13:24
PROVIDERS: PCP Family Medicine; Visit Provider Physician Assistant
DX: R19.7 Diarrhea, unspecified (principal); E03.9 Hypothyroidism, unspecified
CPT/HCPCS: 36415; 80053; 82150; 83690; 84439; 84443; 84480; 85025

== ENCOUNTER 2023-10-23 16:03 | Outpatient (CLI) | payer MEDICARE, SELFPAY ==
[2023-10-23 19:08] LABS: Alanine Aminotransferase 28 U/L (6-50); Alkaline Phosphatase 77 U/L (38-126); Anion Gap 7 mmol/L (8-16); Aspartate Amino Transferase 33 U/L (17-59); Bilirubin,Total 0.5 mg/dL (0.2-1.3); Blood Urea Nitrogen 30 mg/dL (9-20); Calcium 9.9 mg/dL (8.4-10.2); Carbon Dioxide 26 mmol/L (22-30); Chloride 107 mmol/L (98-107); Estimated Glomerular Filt Rate 30; Glucose 111 mg/dL (65-110); Potassium 4.3 mmol/L (3.4-5.0); Sodium 140 mmol/L (137-145)
== END 2023-10-23 16:04 | disposition home or self-care (01) ==
LOC: ANHGOSHLAB 16:04
PROVIDERS: PCP Family Medicine; Visit Provider Nurse Practitioner Family
DX: N18.32 Chronic kidney disease, stage 3b (principal)
CPT/HCPCS: 36415; 80053

== ENCOUNTER → 2023-11-14 13:39 | Outpatient (CLI) | payer MEDICARE, SELFPAY ==
--- NOTE | ~2023-11-14 | MR_ITS ---
EXAMINATION: MR pelvis wo con DATE: 11/14/2023 15:21 INDICATION: TECHNIQUE: Magnetic resonance imaging (MRI) of the pelvis was performed without intravenous contrast. Fullfield sequences of the pelvis included axial, sagittal and coronal T1-weighted FSE and T2-weight ed SS FSE and axial fluid sensitive FSE STIR. COMPARISON: Lumbar spine MR dated 11/14/[address] dated 04/17/2022 FINDINGS: Mild lower lumbar dextrocurvature. Alignment is otherwise normal. There is edema along the nondisplac ed transverse compression fracture plane at the right side of the L5 vertebral body. There is no asso ciated vertebral body height loss. There is an additional nondisplaced transverse surgical fracture p criss extending across S4. Mild osteoarthritis at the bilateral hips with no joint effusion or fractur e at either hip/proximal femur. Mild prostatomegaly. Bladder is normal. Multiple scattered diverticul a along the visualized colon without adjacent inflammatory stranding to suggest diverticulitis. No fr ee fluid in the pelvis. No pathologically enlarged pelvic or inguinal lymphadenopathy. Small foci of metal metallic field artifact associated with a surgical clip at the left inguinal region and a surgi cruz scar posterior to the L4 spinous process fracture fragment likely left L4-L5 hemilaminotomy. IMPRESSION: 1. Nondisplaced fractures at the right side of the L5 vertebral body and extending across the S4 segm ent. Reviewed, dictated and finalized at location A. O TECHNICIAN IMPRESSION: 1. Nondisplaced fractures at the right side of the L5 vertebral body and extend ing across the S4 segment.
--- NOTE | ~2023-11-14 | MR_ITS ---
MRI of the lumbar spine Clinical History: Back pain Technique: Axial T2-weighted images, and sagittal T1-weighted, T2-weighted, and T2 fat-sat images wer e acquired. Findings: There is acute, mild compression fracture deformity of L1, with fracture line: No edema, mi ld loss of height at the superior endplate region. No other fracture or subluxation seen. At L1-L2, there is mild disc bulge with moderate facet arthropathy. No central canal stenosis. There is mild bilateral neural foraminal narrowing, right worse than left. At L2-L3, there is disc bulge and moderate facet arthropathy, with mild central canal stenosis. There is severe left neural foraminal narrowing, and moderate to advanced right neural foraminal narrowing . At L3-L4, there is diffuse disc bulge and moderate facet arthropathy. There is minimal central canal stenosis. There is severe bilateral neural foraminal narrowing. At L4-L5, there is degenerative disc narrowing with diffuse disc bulge and advanced facet arthropathy . No central canal stenosis. There is severe bilateral neural foraminal narrowing. At L5-S1, there is advanced degenerative disc narrowing. There is diffuse disc bulge and severe facet arthropathy. No central canal stenosis. There is severe bilateral neural foraminal, otherwise, right worse than left. Paravertebral soft tissues are unremarkable. Impression: Acute, mild compression fracture of L1, as detailed above. Advanced degenerative spondylosis, as detailed above. Reviewed, dictated and finalized at [facility]. [employer]OR OF [employer]PERATIONS Impression: Acute, mild compression fracture of L1, as detailed above. Advanced degenerative spondylosis, as detailed above.
== END ==
PROVIDERS: PCP Family Medicine; Visit Provider Anesthesiology Pain Medicine
DX: S32.058D Other fracture of fifth lumbar vertebra, subsequent encounter for fracture with routine healing (principal); X58.XXXD Exposure to other specified factors, subsequent encounter; M47.896 Other spondylosis, lumbar region
CPT/HCPCS: 72148; 72195

== ENCOUNTER 2023-12-08 13:03 | Outpatient (CLI) | payer MEDICARE, SELFPAY ==
[2023-12-08 13:19] LABS: Hematocrit 33.9 % (42.0-52.0); Hemoglobin 11.4 g/dL (14.0-18.0); Mean Corpuscular HGB Conc 33.6 g/dl (32-36); Mean Corpuscular Hemoglobin 34.2 pg (26-34); Mean Corpuscular Volume 101.8 fl (80-100); Mean Platelet Volume 10.1 fl (7.4-10.4); Platelet Count Result 199 k/mm3 (150-375); Red Blood Count 3.33 M/mm3 (4.6-6.20); Red Cell Distribution Width 13.2 % (11.5-14.5)
[2023-12-08 14:10] LABS: Albumin Level 4.1 g/dL (3.5-5.1); Anion Gap 9 mmol/L (8-16); Blood Urea Nitrogen 29 mg/dL (9-20); Carbon Dioxide 24 mmol/L (22-30); Chloride 103 mmol/L (98-107); Estimated Glomerular Filt Rate 32; Glucose 122 mg/dL (65-110); Potassium 4.5 mmol/L (3.4-5.0); Sodium 136 mmol/L (137-145)
[2023-12-08 14:13] LABS: Creatinine Urine 88.1 mg/dL; Total Protein Urine Random 11 mg/dL; Ur Ttl Prot Creatinine Ratio 0.12 mg/mg (0-0.20)
[2023-12-08 14:21] LABS: Parathyroid Intact 54.6 pg/mL (7.5-53.5)
== END 2023-12-08 13:04 | disposition home or self-care (01) ==
LOC: ANHLAB 13:05
PROVIDERS: Internal Medicine Nephrology; PCP Family Medicine; Visit Provider Internal Medicine Hematology & Oncology
DX: N18.32 Chronic kidney disease, stage 3b (principal)
CPT/HCPCS: 36415; 80069; 82570; 83970; 84156; 85027